=== PATIENT | female | born 1935 | race Caucasian/White ===

== ENCOUNTER → 2016-05-25 | Outpatient (REF) | payer OTHER ==
[~2016-05-25] MED LIST: ASPI81CH GT; B-12100010 PO; CALCIUM PO; CARV6.25 PO; CLOP75TA2 PO; CO Q100C10 PO; ELEQUIS GT; ELIQ5TAB PO; FISH5CAP PO; HYDR25TAB PO; INSULADS SC; INVO300T PO; LASI40TA PO; METF500T PO; METO25TAB PO; PERC5TAB6 PO; PRAV40TA2 PO; TYLE325T5 GT; VITA500046 PO; VITAMIN B 12 PO; [UNRECOGNIZED DRUG - OTHER] PO
[2016-05-25 18:12] LABS: BASO % 0.5 % (0.0-1.0); EOS # 0.2 K/mm3 (0.0-0.50); EOS % 2.3 % (0.0-3.0); LARGE UNSTAINED CELL # 0.1 K/mm3 (0.0-0.4); LARGE UNSTAINED CELL % 1.4 % (0.0-4.0); LYMPH # 2.3 K/mm3 (1.5-4.5); MEAN CORPUSCULAR HEMOGLOBIN 27.4 pg (27.0-33.0); MEAN CORPUSCULAR HGB CONC 32.1 g/dl (32.0-36.5); MEAN CORPUSCULAR VOLUME 85.1 fl (80.0-96.0); MONO # 0.4 K/mm3 (0.0-0.8); MONO % 5.3 % (0.0-5.0); NEUTROPHILS # 5.4 K/mm3 (1.8-7.7); NEUTROPHILS % 64.6 % (36.0-66.0); PLATELET COUNT, AUTOMATED 197 k/mm3 (150-450); WHITE BLOOD COUNT 8.3 K/mm3 (4.0-10.0)
[2016-05-25 19:28] LABS: ERYTHROCYTE SEDIMENTATION RATE 28 mm/hr (0-30)
== END ==
LOC: M SFHCPLAZ 15:55
PROVIDERS: ATTEND Physician Assistant Medical
DX: M54.5 Low back pain (principal)
CPT/HCPCS: 36415; 85025; 85652; 86140; G0463

== ENCOUNTER → 2016-07-14 | Outpatient (REF) | payer OTHER ==
[2016-07-14 12:15] LABS: ALBUMIN 3.9 GM/DL (3.2-5.2); ALBUMIN/GLOBULIN RATIO 1.39 (1.00-1.93); ALKALINE PHOSPHATASE 71 U/L (45-117); ALT/SGPT 13 U/L (12-78); ANION GAP 6 MEQ/L (8-16); AST/SGOT 10 U/L (15-37); BILIRUBIN,TOTAL 1.1 MG/DL (0.2-1.0); BLOOD UREA NITROGEN 26 MG/DL (7-18); CALCIUM LEVEL 9.3 MG/DL (8.8-10.2); CARBON DIOXIDE LEVEL 32 MEQ/L (21-32); CHLORIDE LEVEL 102 MEQ/L (98-107); CHOLESTEROL LEVEL 140 MG/DL (<200); CREATININE FOR GFR 1.34 MG/DL (0.55-1.02); GLOMERULAR FILTRATION RATE 40.6 (>39); GLUCOSE, FASTING 147 MG/DL (83-110); POTASSIUM SERUM 4.3 MEQ/L (3.5-5.1); SODIUM LEVEL 140 MEQ/L (136-145); TOTAL PROTEIN 6.7 GM/DL (6.4-8.2); TRIGLYCERIDES LEVEL 76 MG/DL (<150)
== END ==
LOC: M SFHCPLAZ 07:48
PROVIDERS: ATTEND Family Medicine
DX: E78.2 Mixed hyperlipidemia (principal); Z79.899 Other long term (current) drug therapy

== ENCOUNTER → 2016-11-19 | Outpatient (REF) | payer OTHER ==
[~2016-11-19] MED LIST changes: -METF500T PO; +METF500T13 PO; +PERC5TAB12 PO; -PERC5TAB6 PO
[2016-11-19 12:10] LABS: CALCIUM OXALATE CRYSTALS SMALL
[2016-11-19 12:14] LABS: BASO % 0.6 % (0.0-1.0); EOS # 0.2 K/mm3 (0.0-0.50); EOS % 2.7 % (0.0-3.0); LARGE UNSTAINED CELL # 0.1 K/mm3 (0.0-0.4); LARGE UNSTAINED CELL % 1.1 % (0.0-4.0); LYMPH # 1.9 K/mm3 (1.5-4.5); LYMPH % 24.6 % (24.0-44.0); MEAN CORPUSCULAR HEMOGLOBIN 27.5 pg (27.0-33.0); MEAN CORPUSCULAR HGB CONC 32.3 g/dl (32.0-36.5); MEAN CORPUSCULAR VOLUME 85.3 fl (80.0-96.0); MONO # 0.3 K/mm3 (0.0-0.8); MONO % 4.5 % (0.0-5.0); NEUTROPHILS % 66.6 % (36.0-66.0); PLATELET COUNT, AUTOMATED 201 k/mm3 (150-450); RED CELL DISTRIBUTION WIDTH 14.3 % (11.5-14.5); WHITE BLOOD COUNT 7.6 K/mm3 (4.0-10.0)
[2016-11-19 12:47] LABS: ALBUMIN 3.8 GM/DL (3.2-5.2); ALBUMIN/GLOBULIN RATIO 1.27 (1.00-1.93); BILIRUBIN,TOTAL 1.2 MG/DL (0.2-1.0); CALCIUM LEVEL 9.7 MG/DL (8.8-10.2); CREATININE FOR GFR 1.33 MG/DL (0.55-1.02); GLOMERULAR FILTRATION RATE 40.9 (>32); PERCENT SATURATION 18.9 % (13.2-45.0); POTASSIUM SERUM 4.1 MEQ/L (3.5-5.1); TOTAL PROTEIN 6.8 GM/DL (6.4-8.2)
== END ==
LOC: M SFHCPLAZ 08:28
PROVIDERS: ATTEND Family Medicine
DX: I10 Essential (primary) hypertension (principal); D51.9 Vitamin B12 deficiency anemia, unspecified; E11.9 Type 2 diabetes mellitus without complications

== ENCOUNTER → 2016-12-08 | Outpatient (CLI) | payer OTHER ==
--- NOTE | 2016-12-08 13:09 | REP ---
Clinical: Follow up multinodular goiter. Technique: Real time hameed scale and color evaluation using curved array and linear high frequency transducers. Findings: The thyroid gland is diffusely heterogeneous and moderately enlarged including scattered noncalcified and calcified nodules. In direct comparison with prior examination dated 12/10/2015, examination is essentially stable when allowing for normal variations in technique. The right thyroid lobe measures approximately 4.5 x 2.0 x 2.5 cm (previously measured 5.7 x 2.5 x 3.1 cm) and appears diffusely heterogeneous with a central, midpole calcified nodule currently measuring approximately 7 x 5 x 5 mm. A noncalcified right upper pole nodule currently measures approximately 10 x 10 x 10 mm (previously measured at 9 x 9 x 12 mm). The isthmus measures 6.7 mm in width. The left lobe measures 6.8 x 1.9 x 2.4 cm (previously measured 5.4 x 2.0 x 2.8 cm) and appears diffusely heterogeneous with a large lower pole calcified nodule currently measuring approximately 23 x 16 x 16 mm (previously measuring at 13 x 9 x 20 mm). Noncalcified solid nodule in the upper pole measures 9 x 8 x 7 mm (previously measuring 11 x 8 x 14 mm). A calcified mid pole nodule measures 9 x 10 x 7 mm (previously measuring 12 x 10 x 13 mm). Impression: Heterogeneous multinodular goiter with multiple ossified and noncalcified nodules which, when allowing for variations in technique appear overall relatively similar to prior examination. Signed by Carlos Argueta MD 12/08/2016 01:00 P
== END ==
LOC: M RAD 11:51
PROVIDERS: ATTEND Family Medicine
DX: E04.2 Nontoxic multinodular goiter (principal)

== ENCOUNTER → 2017-03-16 | Outpatient (CLI) | payer OTHER ==
--- NOTE | 2017-03-16 09:53 | REPMRS ---
Patient History The patient states she has not had a clinical breast exam in over a year. Patient is postmenopausal. Family history of breast cancer in sister at age 36. Digital Woman Screen Mammo: March 16, 2017 - Exam #: [id number] Bilateral CC and MLO view(s) were taken. Technologist: Sri Billy Technologist Prior study comparison: January 29, 2016, digital woman screen mammo performed at [facility] to [facility]. November 18, 2014, digital woman screen mammo performed at [facility] to [facility]. FINDINGS: There are scattered fibroglandular densities. There has been no change in the appearance of the mammogram from the prior studies. There is a mild amount of residual fibroglandular tissue which is fairly symmetric. There is no interval development of dominant mass, architectural distortion, or clustered microcalcification suggestive of malignancy. ASSESSMENT: BI-RADS/ACR category 1 mammogram. Negative. Recommendation Routine screening mammogram in 1 year (for women over age 40). This mammogram was interpreted with the aid of an FDA-approved computer-aided dectection system. Electronically Signed By: Skyler White MD 03/16/17 0953
== END ==
LOC: M WHC 07:54
PROVIDERS: ATTEND Family Medicine
DX: Z12.31 Encounter for screening mammogram for malignant neoplasm of breast (principal); Z78.0 Asymptomatic menopausal state

== ENCOUNTER → 2017-03-25 | Outpatient (REF) | payer OTHER ==
[2017-03-25 11:56] LABS: ALBUMIN 3.5 GM/DL (3.2-5.2); ALBUMIN/GLOBULIN RATIO 1.13 (1.00-1.93); ALKALINE PHOSPHATASE 67 U/L (45-117); ALT/SGPT 11 U/L (12-78); ANION GAP 7 MEQ/L (8-16); AST/SGOT 12 U/L (7-37); BILIRUBIN,TOTAL 0.9 MG/DL (0.2-1.0); BLOOD UREA NITROGEN 29 MG/DL (7-18); CALCIUM LEVEL 9.1 MG/DL (8.8-10.2); CARBON DIOXIDE LEVEL 32 MEQ/L (21-32); CHLORIDE LEVEL 106 MEQ/L (98-107); CHOLESTEROL LEVEL 122 MG/DL (<200); CREATININE FOR GFR 1.21 MG/DL (0.55-1.02); FREE T4 1.11 NG/DL (0.76-1.46); GLOMERULAR FILTRATION RATE 45.6 (>32); GLUCOSE, FASTING 128 MG/DL (83-110); POTASSIUM SERUM 4.3 MEQ/L (3.5-5.1); SODIUM LEVEL 145 MEQ/L (136-145); TOTAL PROTEIN 6.6 GM/DL (6.4-8.2); TRIGLYCERIDES LEVEL 61 MG/DL (<150)
[2017-03-25 12:04] LABS: ESTIMATED AVERAGE GLUCOSE 171 MG/DL (60-110)
== END ==
LOC: M SFHCPLAZ 08:06
DX: E11.9 Type 2 diabetes mellitus without complications (principal); E04.2 Nontoxic multinodular goiter
CPT/HCPCS: 83735

== ENCOUNTER → 2017-08-16 | Outpatient (REF) | payer OTHER ==
[2017-08-16 11:56] LABS: BASO # 0.1 10^3/uL (0.0-0.2); BASO % 0.8 % (0.0-1.0); EOS # 0.2 10^3/uL (0.0-0.50); EOS % 2.3 % (0.0-3.0); HEMATOCRIT 38.6 % (36.0-47.0); HEMOGLOBIN 12.1 g/dl (12.0-15.5); IMMATURE GRANULOCYTE % 0.5 % (0-3.0); LYMPH # 1.9 10^3/uL (1.5-4.5); LYMPH % 25.7 % (24.0-44.0); MEAN CORPUSCULAR HEMOGLOBIN 26.9 pg (27.0-33.0); MEAN CORPUSCULAR HGB CONC 31.3 g/dl (32.0-36.5); MEAN CORPUSCULAR VOLUME 85.8 fl (80.0-96.0); MONO # 0.5 10^3/uL (0.0-0.8); MONO % 6.1 % (0.0-5.0); NEUTROPHILS # 4.9 10^3/uL (1.8-7.7); NEUTROPHILS % 64.6 % (36.0-66.0); PLATELET COUNT, AUTOMATED 206 10^3/uL (150-450); RED CELL DISTRIBUTION WIDTH 14.7 % (11.5-14.5); WHITE BLOOD COUNT 7.5 10^3/uL (4.0-10.0)
[2017-08-16 12:19] LABS: ESTIMATED AVERAGE GLUCOSE 203 MG/DL (60-110); HEMOGLOBIN A1c 8.7 %
[2017-08-16 12:22] LABS: ALBUMIN 3.7 GM/DL (3.2-5.2); ALBUMIN/GLOBULIN RATIO 1.23 (1.00-1.93); ALKALINE PHOSPHATASE 62 U/L (45-117); ALT/SGPT 11 U/L (12-78); ANION GAP 5 MEQ/L (8-16); AST/SGOT 13 U/L (7-37); BILIRUBIN,TOTAL 1.2 MG/DL (0.2-1.0); BLOOD UREA NITROGEN 25 MG/DL (7-18); CALCIUM LEVEL 9.4 MG/DL (8.8-10.2); CARBON DIOXIDE LEVEL 33 MEQ/L (21-32); CHLORIDE LEVEL 105 MEQ/L (98-107); CREATININE FOR GFR 1.36 MG/DL (0.55-1.30); GLOMERULAR FILTRATION RATE 39.8 (>32); GLUCOSE, FASTING 183 MG/DL (70-100); POTASSIUM SERUM 4.5 MEQ/L (3.5-5.1); SODIUM LEVEL 143 MEQ/L (136-145); TOTAL PROTEIN 6.7 GM/DL (6.4-8.2)
[2017-08-16 13:14] LABS: PTH INTACT 33.2 PG/ML (18.5-88.0); TOTAL 25(OH) VITAMIN D 72.5 NG/ML (30.0-100.0); VITAMIN B12 LEVEL 521 PG/ML (247-911)
== END ==
LOC: M SFHCPLAZ 08:14
DX: N18.3 Chronic kidney disease, stage 3 (moderate) (principal); I12.9 Hypertensive chronic kidney disease with stage 1 through stage 4 chronic kidney disease, or unspecified chronic kidney disease
CPT/HCPCS: 82607

== ENCOUNTER → 2017-12-19 | Outpatient (REF) | payer OTHER ==
[2017-12-19 12:41] LABS: BASO % 0.5 % (0.0-1.0); EOS # 0.2 10^3/uL (0.0-0.50); HEMOGLOBIN 11.6 g/dl (12.0-15.5); IMMATURE GRANULOCYTE % 0.3 % (0-3.0); LYMPH # 1.9 10^3/uL (1.5-4.5); LYMPH % 25.5 % (24.0-44.0); MEAN CORPUSCULAR HEMOGLOBIN 26.8 pg (27.0-33.0); MEAN CORPUSCULAR HGB CONC 30.5 g/dl (32.0-36.5); MEAN CORPUSCULAR VOLUME 87.8 fl (80.0-96.0); MONO # 0.4 10^3/uL (0.0-0.8); MONO % 5.8 % (0.0-5.0); NEUTROPHILS # 4.8 10^3/uL (1.8-7.7); NEUTROPHILS % 64.9 % (36.0-66.0); PLATELET COUNT, AUTOMATED 207 10^3/uL (150-450); RED BLOOD COUNT 4.33 10^6/uL (4.00-5.40); RED CELL DISTRIBUTION WIDTH 14.9 % (11.5-14.5); RETICULOCYTE # 47.6 10^9/L (17-77); RETICULOCYTE % 1.1 % (0.5-1.5); WHITE BLOOD COUNT 7.4 10^3/uL (4.0-10.0)
[2017-12-19 13:12] LABS: ALBUMIN 3.5 GM/DL (3.2-5.2); ALBUMIN/GLOBULIN RATIO 1.17 (1.00-1.93); ALKALINE PHOSPHATASE 62 U/L (45-117); ALT/SGPT 10 U/L (12-78); ANION GAP 5 MEQ/L (8-16); AST/SGOT 13 U/L (7-37); BILIRUBIN,TOTAL 1.2 MG/DL (0.2-1.0); BLOOD UREA NITROGEN 24 MG/DL (7-18); CALCIUM LEVEL 8.9 MG/DL (8.8-10.2); CARBON DIOXIDE LEVEL 32 MEQ/L (21-32); CHLORIDE LEVEL 105 MEQ/L (98-107); CREATININE FOR GFR 1.25 MG/DL (0.55-1.30); FREE T4 1.17 NG/DL (0.76-1.46); GLOMERULAR FILTRATION RATE 43.8 (>32); GLUCOSE, FASTING 119 MG/DL (70-100); POTASSIUM SERUM 4.4 MEQ/L (3.5-5.1); SODIUM LEVEL 142 MEQ/L (136-145); TOTAL 25(OH) VITAMIN D 65.8 NG/ML (30.0-100.0); TOTAL PROTEIN 6.5 GM/DL (6.4-8.2)
[2017-12-19 13:13] LABS: PTH INTACT 31.7 PG/ML (18.5-88.0)
[2017-12-19 14:43] LABS: ESTIMATED AVERAGE GLUCOSE 180 MG/DL (60-110); HEMOGLOBIN A1c 7.9 %
== END ==
LOC: M SFHCPLAZ 08:11
DX: D50.9 Iron deficiency anemia, unspecified (principal); N18.3 Chronic kidney disease, stage 3 (moderate); E04.2 Nontoxic multinodular goiter; E11.9 Type 2 diabetes mellitus without complications
CPT/HCPCS: 83735

== ENCOUNTER → 2018-01-16 | Outpatient (CLI) | payer OTHER | LOC: M RAD 09:44 | DX: E04.2 Nontoxic multinodular goiter (principal) | CPT/HCPCS: 76536 ==

== ENCOUNTER → 2018-04-25 | Outpatient (REF) | payer MEDICARE ==
[~2018-04-25] MED LIST changes: -LASI40TA PO; +LASI40TA9 PO
[2018-04-25 09:37] LABS: CHOLESTEROL RISK RATIO 2.533 (<5)
== END ==
LOC: M SFHCPLAZ 08:11
PROVIDERS: ATTEND Physician Assistant Medical
DX: E78.2 Mixed hyperlipidemia (principal)

== ENCOUNTER → 2018-09-19 | Outpatient (CLI) | payer MEDICARE ==
[~2018-09-19] MED LIST changes: -ASPI81CH GT; +ASPI81CH49 GT; +HYDR-2541 PO; -HYDR25TAB PO; +METO-346 PO; +METO1TAB63 PO; -METO25TAB PO
--- NOTE | 2018-09-19 08:51 | REPMRS ---
Patient History The patient states she has not had a clinical breast exam in over a year. Patient is postmenopausal. Family history of breast cancer at age 36 in sister. Digital Woman Screen Mammo: September 19, 2018 - Exam #: [id number] Bilateral CC and MLO view(s) were taken. Technologist: Jennifer Pualson, Technologist Prior study comparison: March 16, 2017, digital woman screen mammo performed at [facility]. January 29, 2016, digital woman screen mammo performed at [facility]. FINDINGS: There are scattered fibroglandular densities. Bilateral screening digital mammogram with tomosynthesis: The patient states that there are no palpable abnormalities or other breast complaints. The patient's Tyrer-Cuzieck Lifetime Breast Carcinoma Risk is: 2.4% There is a new 8 mm nodule with indistinct margins centrally in the left breast as a change from the comparison studies. There are no other changes in the left breast. In the right breast there is a 2 mm benign calcification with a central lucency anteriorly. There are no focal suspicious findings in the right breast. There are no additional findings on tomosynthesis. This mammogram is interpreted with the aid of an FDA approved computer-aided detection system. Not all cancers are identified by mammography. Negative mammogram reports should not delay biopsy if a dominant or clinically suspicious mass is present. Adenosis and dense breasts may obscure an underlying neoplasm. Assessment: BI-RADS/ACR category 0 mammogram, Incomplete: Need additional imaging evaluation and/or prior mammograms for comparison. Recommendation Ultrasound and follow-up diagnostic mammogram of the left breast. This mammogram was interpreted with the aid of an FDA-approved computer-aided dectection system. A. Negative x-ray reports should not delay biopsy if a dominant or clinically suspicious mass is present. B. Not all cancers are identified by mammography. C. Adenosis and dense breast may obscure an underlying neoplasm. Electronically Signed By: Skyler Gonsalez M.D. 09/19/18 0815
== END ==
LOC: M WHC 06:35
PROVIDERS: ATTEND Family Medicine
DX: Z12.31 Encounter for screening mammogram for malignant neoplasm of breast (principal); N63.10 Unspecified lump in the right breast, unspecified quadrant; N63.20 Unspecified lump in the left breast, unspecified quadrant; Z78.0 Asymptomatic menopausal state; Z80.3 Family history of malignant neoplasm of breast

== ENCOUNTER → 2018-09-25 | Outpatient (REF) | payer MEDICARE ==
[2018-09-25 09:55] LABS: BASO # 0.1 10^3/uL (0.0-0.2); BASO % 0.8 % (0.0-1.0); EOS # 0.1 10^3/uL (0.0-0.50); EOS % 1.8 % (0.0-3.0); HEMATOCRIT 40.6 % (36.0-47.0); HEMOGLOBIN 12.7 g/dl (12.0-15.5); LYMPH # 1.9 10^3/uL (1.5-4.5); LYMPH % 24.7 % (24.0-44.0); MEAN CORPUSCULAR HEMOGLOBIN 26.3 pg (27.0-33.0); MEAN CORPUSCULAR HGB CONC 31.3 g/dl (32.0-36.5); MEAN CORPUSCULAR VOLUME 84.1 fl (80.0-96.0); MONO # 0.5 10^3/uL (0.0-0.8); MONO % 6.2 % (0.0-5.0); NEUTROPHILS % 66.1 % (36.0-66.0); PLATELET COUNT, AUTOMATED 228 10^3/uL (150-450); RED BLOOD COUNT 4.83 10^6/uL (4.00-5.40); WHITE BLOOD COUNT 7.6 10^3/uL (4.0-10.0)
[2018-09-25 10:04] LABS: ALBUMIN 3.9 GM/DL (3.2-5.2); ALT/SGPT 13 U/L (12-78); BILIRUBIN,TOTAL 1.2 MG/DL (0.2-1.0); BLOOD UREA NITROGEN 23 MG/DL (7-18); CALCIUM LEVEL 9.7 MG/DL (8.8-10.2); CARBON DIOXIDE LEVEL 32 MEQ/L (21-32); CHLORIDE LEVEL 103 MEQ/L (98-107); CREATININE FOR GFR 1.33 MG/DL (0.55-1.30); GLOMERULAR FILTRATION RATE 40.8 (>32); GLUCOSE, FASTING 90 MG/DL (70-100); MAGNESIUM LEVEL 1.9 MG/DL (1.8-2.4); POTASSIUM SERUM 3.9 MEQ/L (3.5-5.1); SODIUM LEVEL 141 MEQ/L (136-145); TOTAL PROTEIN 7.2 GM/DL (6.4-8.2)
[2018-09-25 10:26] LABS: VITAMIN B12 LEVEL > 2000 PG/ML (247-911)
[2018-09-25 11:22] LABS: HEMOGLOBIN A1c 8.2 %
== END ==
LOC: M SFHCPLAZ 07:53
PROVIDERS: ATTEND Family Medicine
DX: N18.3 Chronic kidney disease, stage 3 (moderate) (principal)

== ENCOUNTER → 2019-03-22 | Outpatient (CLI) | payer MEDICARE ==
[~2019-03-22] MED LIST changes: +AMLO2.5T3 PO; +ASPI81TA85 PO; +ATOR40TA75 PO; +B-122500 PO; +D 202000 PO; +LETR2.5T2 PO; +TRES1INJ INJ
[2019-03-22 10:15] LABS: BASO % 0.5 % (0.0-1.0); EOS # 0.3 10^3/uL (0.0-0.5); EOS % 4.1 % (0.0-3.0); HEMOGLOBIN 11.5 g/dl (12.0-15.5); LYMPH # 1.6 10^3/uL (1.5-5.0); LYMPH % 25.5 % (24.0-44.0); MEAN CORPUSCULAR HEMOGLOBIN 26.1 pg (27.0-33.0); MEAN CORPUSCULAR HGB CONC 30.3 g/dl (32.0-36.5); MEAN CORPUSCULAR VOLUME 86.4 fl (80.0-96.0); MONO # 0.3 10^3/uL (0.0-0.8); MONO % 5.3 % (0.0-5.0); NEUTROPHILS # 4.1 10^3/uL (1.5-8.5); NEUTROPHILS % 64.1 % (36.0-66.0); PLATELET COUNT, AUTOMATED 190 10^3/uL (150-450); WHITE BLOOD COUNT 6.4 10^3/uL (4.0-10.0)
[2019-03-22 10:47] LABS: HEMOGLOBIN A1c 8.2 %
[2019-03-22 10:52] LABS: ALBUMIN 3.4 GM/DL (3.2-5.2); BILIRUBIN,TOTAL 0.9 MG/DL (0.2-1.0); CALCIUM LEVEL 8.9 MG/DL (8.8-10.2); CHOLESTEROL RISK RATIO 2.416 (<5); CREATININE FOR GFR 1.17 MG/DL (0.55-1.30); FREE T4 1.09 NG/DL (0.76-1.46); GLOMERULAR FILTRATION RATE 47.1 (>32); POTASSIUM SERUM 4.3 MEQ/L (3.5-5.1); THYROID STIMULATING HORMONE 4.06 uIU/ML (0.358-3.740); TOTAL PROTEIN 6.5 GM/DL (6.4-8.2)
[2019-03-22 10:54] LABS: TOTAL 25(OH) VITAMIN D 62.1 NG/ML (30.0-100.0)
[2019-03-22 10:55] LABS: PTH INTACT 36.9 PG/ML (18.5-88.0)
== END ==
LOC: M PLALAB 08:07
PROVIDERS: ATTEND Family Medicine
DX: D50.9 Iron deficiency anemia, unspecified (principal); E55.9 Vitamin D deficiency, unspecified; E11.9 Type 2 diabetes mellitus without complications

== ENCOUNTER → 2019-08-10 | Outpatient (REF) | payer MEDICARE ==
[2019-08-10 10:41] LABS: APPEARANCE, URINE MANUAL HAZY (CLEAR); COLOR, URINE MANUAL YELLOW (YELLOW); PH,URINE MAN 5.5 UNITS (5.0 - 7.0)
[2019-08-10 10:42] LABS: BILIRUBIN, URINE MANUAL NEGATIVE (NEGATIVE); BLOOD URINE MANUAL TRACE (NEGATIVE); GLUCOSE, URINE (UA) MANUAL NEGATIVE (NEGATIVE); KETONE, URINE MANUAL NEGATIVE (NEGATIVE); LEUKOCYTE ESTERASE, URINE MAN POSITIVE (NEGATIVE); NITRITE, URINE MANUAL NEGATIVE (NEGATIVE); UROBILINOGEN, URINE MANUAL NORMAL (NORMAL)
[2019-08-10 10:43] LABS: PROTEIN, URINE MANUAL NEGATIVE (NEGATIVE)
[2019-08-10 10:48] LABS: BASO % 0.4 % (0.0-1.0); EOS # 0.2 10^3/uL (0.0-0.5); EOS % 2.1 % (0.0-3.0); HEMATOCRIT 43.2 % (36.0-47.0); HEMOGLOBIN 13.1 g/dl (12.0-15.5); LYMPH # 2.4 10^3/uL (1.5-5.0); LYMPH % 30.1 % (24.0-44.0); MEAN CORPUSCULAR HEMOGLOBIN 25.7 pg (27.0-33.0); MEAN CORPUSCULAR HGB CONC 30.3 g/dl (32.0-36.5); MEAN CORPUSCULAR VOLUME 84.9 fl (80.0-96.0); MONO # 0.5 10^3/uL (0.0-0.8); MONO % 5.7 % (0.0-5.0); NEUTROPHILS # 4.9 10^3/uL (1.5-8.5); NEUTROPHILS % 61.6 % (36.0-66.0); PLATELET COUNT, AUTOMATED 218 10^3/uL (150-450); RED BLOOD COUNT 5.09 10^6/uL (4.00-5.40); WHITE BLOOD COUNT 7.9 10^3/uL (4.0-10.0)
[2019-08-10 10:49] LABS: BACTERIA, URINE SMALL AMOUNT; HYALINE CAST, URINE NONE SEEN /lpf (0-1); RBC, URINE 0-1 /hpf (0-3); SQUAMOUS EPITHELIAL CELL URINE SMALL AMOUNT /hpf (SMALL AMT); TRIPLE PHOSPHATE CRYSTAL,URINE SMALL AMOUNT /hpf
[2019-08-10 10:51] LABS: AMORPHOUS SEDIMENT, URINE SMALL AMOUNT (NEGATIVE)
[2019-08-10 11:00] LABS: ALBUMIN 3.8 GM/DL (3.2-5.2); BILIRUBIN,TOTAL 0.9 MG/DL (0.2-1.0); CALCIUM LEVEL 9.6 MG/DL (8.8-10.2); CREATININE FOR GFR 1.24 MG/DL (0.55-1.30); FREE T4 1.11 NG/DL (0.76-1.46); GLOMERULAR FILTRATION RATE 44.1 (>32); MAGNESIUM LEVEL 1.9 MG/DL (1.8-2.4); POTASSIUM SERUM 4.4 MEQ/L (3.5-5.1); THYROID STIMULATING HORMONE 2.89 uIU/ML (0.358-3.740); TOTAL PROTEIN 7.1 GM/DL (6.4-8.2)
[2019-08-10 11:11] LABS: HEMOGLOBIN A1c 7.4 %
[2019-08-10 11:22] LABS: MAU/CREAT RATIO 28.1 MCG/MG (0.0-30.0)
== END ==
LOC: M SFHCPLAZ 08:04
PROVIDERS: ATTEND Family Medicine
DX: I48.0 Paroxysmal atrial fibrillation (principal); D50.9 Iron deficiency anemia, unspecified; E11.9 Type 2 diabetes mellitus without complications

== ENCOUNTER → 2020-01-09 | Outpatient (REF) | payer MEDICARE ==
[~2020-01-09] MED LIST changes: -ASPI81TA85 PO; +ASPI81TA86 PO
[2020-01-09 10:58] LABS: HEMOGLOBIN A1c 6.9 %
[2020-01-09 11:03] LABS: ALBUMIN 3.7 GM/DL (3.2-5.2); CALCIUM LEVEL 9.3 MG/DL (8.8-10.2); CHOLESTEROL RISK RATIO 2.418 (<5); CREATININE FOR GFR 1.23 MG/DL (0.55-1.30); GLOMERULAR FILTRATION RATE 44.4 (>32); POTASSIUM SERUM 4.5 MEQ/L (3.5-5.1); TOTAL PROTEIN 6.7 GM/DL (6.4-8.2)
== END ==
LOC: M PLALAB 08:06
PROVIDERS: ATTEND Family Medicine
DX: I50.30 Unspecified diastolic (congestive) heart failure (principal); E11.9 Type 2 diabetes mellitus without complications

== ENCOUNTER → 2020-01-21 | Outpatient (CLI) | payer MEDICARE ==
--- NOTE | 2020-01-23 07:01 | REP ---
INDICATION: GOITER COMPARISON: 01/16/2018 TECHNIQUE: White scale and color evaluation of the thyroid gland using the linear high frequency transducer. FINDINGS: Examination was limited due to technical factors. The thyroid gland is diffusely heterogeneous. Isthmus measures 5.7 mm in width. Right lobe measures 5.2 x 1.9 x 2.1 cm and includes solid upper pole nodule measuring 11 x 10 x 9 mm as well as partially stable calcified midpole nodule measuring 5 x 7 x 6 mm. Left lobe measures 4.7 x 2.2 x 2.3 cm and includes solid upper pole nodule measuring 9 x 7 x 5 mm similar to prior examination as well as partially calcified stable midpole nodule measuring 18 x 14 x 18 mm, and partially calcified lower pole nodule measuring 8 x 9 x 7 mm. IMPRESSION: Heterogeneous multinodular thyroid gland with multiple nodules. There is some stability as well as some variation to the nodules as compared to prior examination but this may in part be related to heterogeneity and variations in technique. <Electronically signed by Carlos Argueta > 01/23/20 0658
== END ==
LOC: M RAD 13:30
PROVIDERS: ATTEND Family Medicine
DX: E04.2 Nontoxic multinodular goiter (principal)

== ENCOUNTER → 2020-05-21 | Outpatient (REF) | payer MEDICARE ==
[2020-05-21 10:53] LABS: BASO # 0.1 10^3/uL (0.0-0.2); BASO % 0.7 % (0.0-1.0); EOS # 0.1 10^3/uL (0.0-0.5); EOS % 1.8 % (0.0-3.0); HEMATOCRIT 43.4 % (36.0-47.0); HEMOGLOBIN 13.6 g/dl (12.0-15.5); LYMPH % 27.8 % (24.0-44.0); MEAN CORPUSCULAR HEMOGLOBIN 26.7 pg (27.0-33.0); MEAN CORPUSCULAR HGB CONC 31.3 g/dl (32.0-36.5); MEAN CORPUSCULAR VOLUME 85.3 fl (80.0-96.0); MONO # 0.4 10^3/uL (0.0-0.8); MONO % 6.1 % (2.0-8.0); NEUTROPHILS # 4.6 10^3/uL (1.5-8.5); NEUTROPHILS % 63.3 % (36.0-66.0); PLATELET COUNT, AUTOMATED 219 10^3/uL (150-450); RED BLOOD COUNT 5.09 10^6/uL (4.00-5.40); WHITE BLOOD COUNT 7.2 10^3/uL (4.0-10.0)
[2020-05-21 11:32] LABS: BILIRUBIN,TOTAL 1.2 MG/DL (0.2-1.0); CALCIUM LEVEL 9.7 MG/DL (8.8-10.2); CREATININE FOR GFR 1.48 MG/DL (0.55-1.30); FREE T4 1.31 NG/DL (0.76-1.46); GLOMERULAR FILTRATION RATE 35.9 (>32); POTASSIUM SERUM 4.6 MEQ/L (3.5-5.1); PTH INTACT 59.5 PG/ML (18.5-88.0); THYROID STIMULATING HORMONE 3.12 uIU/ML (0.358-3.740); TOTAL 25(OH) VITAMIN D 86.6 NG/ML (30.0-100.0); TOTAL PROTEIN 6.8 GM/DL (6.4-8.2)
[2020-05-21 11:39] LABS: HEMOGLOBIN A1c 8.3 %
== END ==
LOC: M PLALAB 08:04
PROVIDERS: ATTEND Family Medicine
DX: I50.30 Unspecified diastolic (congestive) heart failure (principal); N18.30 Chronic kidney disease, stage 3 unspecified; E78.2 Mixed hyperlipidemia; E11.9 Type 2 diabetes mellitus without complications

== ENCOUNTER → 2020-06-06 | Outpatient (CLI) | payer MEDICARE ==
--- NOTE | 2020-06-06 09:01 | REP ---
INDICATION: CKD STAGE 3 COMPARISON: 12/07/2007 TECHNIQUE: Real time hameed scale ultrasound examination using curved array transducer followed by color Doppler evaluation of the renal vasculature. FINDINGS: Kidneys are relatively normal in reniform shape and symmetric in size with increased central sinus fat consistent with chronic renal disease. No hydronephrosis, nephrolithiasis, or renal mass lesion. Right kidney measures 9.0 x 4.3 x 3.4 cm and includes 8 mm lower pole cortical cyst. Left kidney measures 8.6 x 4.1 x 5.0 cm and includes 8 mm lower pole cortical cyst. Color Doppler evaluation . Peak aortic velocity: 84 centimeters/second RIGHT KIDNEY Renal arterial velocity: 95 centimeters/second Renal-aortic ratio: 1.13 Intrarenal resistive indices: 0.73-0.86 Intrarenal acceleration times: 0.036-0.042 LEFT KIDNEY Renal arterial velocity: 86 centimeters/second Renal-aortic ratio: 1.02 Intrarenal resistive indices: 0.75-0.78 Intrarenal acceleration times: 0.036-0.042 IMPRESSION: 1. Kidneys demonstrate chronic renal disease. No hydronephrosis. 2. Doppler interegation without sonographic evidence for renal arterial stenosis. <Electronically signed by Carlos Argueta > 06/06/20 0857
== END ==
LOC: M RAD 07:43
PROVIDERS: ATTEND Family Medicine
DX: N18.30 Chronic kidney disease, stage 3 unspecified (principal)

== ENCOUNTER → 2020-09-15 | Outpatient (REF) | payer MEDICARE ==
[2020-09-15 11:55] LABS: BASO # 0.1 10^3/uL (0.0-0.2); BASO % 0.7 % (0.0-1.0); EOS # 0.2 10^3/uL (0.0-0.5); EOS % 2.5 % (0.0-3.0); HEMATOCRIT 42.4 % (36.0-47.0); HEMOGLOBIN 12.9 g/dl (12.0-15.5); LYMPH # 2.3 10^3/uL (1.5-5.0); LYMPH % 30.4 % (24.0-44.0); MEAN CORPUSCULAR HEMOGLOBIN 26.1 pg (27.0-33.0); MEAN CORPUSCULAR HGB CONC 30.4 g/dl (32.0-36.5); MEAN CORPUSCULAR VOLUME 85.8 fl (80.0-96.0); MONO # 0.5 10^3/uL (0.0-0.8); MONO % 5.9 % (2.0-8.0); NEUTROPHILS # 4.6 10^3/uL (1.5-8.5); PLATELET COUNT, AUTOMATED 252 10^3/uL (150-450); RED BLOOD COUNT 4.94 10^6/uL (4.00-5.40); WHITE BLOOD COUNT 7.6 10^3/uL (4.0-10.0)
[2020-09-15 12:14] LABS: HEMOGLOBIN A1c 9.2 %
[2020-09-15 12:48] LABS: ALBUMIN 3.8 GM/DL (3.2-5.2); BILIRUBIN,TOTAL 1.2 MG/DL (0.2-1.0); CALCIUM LEVEL 9.8 MG/DL (8.8-10.2); CHOLESTEROL RISK RATIO 2.411 (<5); CREATININE FOR GFR 1.3 MG/DL (0.55-1.30); GLOMERULAR FILTRATION RATE 41.6 (>32); POTASSIUM SERUM 4.1 MEQ/L (3.5-5.1); TOTAL PROTEIN 6.9 GM/DL (6.4-8.2)
[2020-09-15 14:06] LABS: PTH INTACT 34.8 PG/ML (18.5-88.0)
== END ==
LOC: M PLALAB 07:59
PROVIDERS: ATTEND Family Medicine
DX: I50.30 Unspecified diastolic (congestive) heart failure (principal); E11.9 Type 2 diabetes mellitus without complications; N18.30 Chronic kidney disease, stage 3 unspecified

== ENCOUNTER 2021-03-26 11:53 | Inpatient (IN) | payer MEDICARE ==
[~2021-03-26] VITALS: Ht 165.1 cm; Wt 108.2 kg
[~2021-03-26 11:53] MED LIST changes: -ASPI81TA26 PO; -CEFD1CAP8 PO; -FURO20TA2 PO; -METF-838 PO; -VITA200012 PO
[2021-03-26] MEDS ORDERED: NS 1,000 ML IV ONE (12:15)
--- NOTE | 2021-03-26 12:37 | REP ---
INDICATION: DKA. COMPARISON: 05/10/2016 the latest prior TECHNIQUE: Portable FINDINGS: The technique utilized in obtaining the radiograph has magnified the cardiac silhouette and accentuated the interstitial markings. The superior mediastinal structures are midline. The cardiac silhouette is unremarkable in size, shape, and position. The diaphragmatic surfaces of the lungs are regular, and the costophrenic angles are clear. The pulmonary jeffries are clear. The imaged osseous structures are intact. IMPRESSION: There is no acute cardiopulmonary disease. <Electronically signed by Raheel Kelley > 03/26/21 0658
[2021-03-26 13:03] LABS: VENOUS BASE EXCESS -1.8 (-2.0-2.0); VENOUS HCO3 24.3 MEQ/L (23.0-27.0); VENOUS O2 SATURATION 87.7 % (60.0-80.0); VENOUS PARTIAL PRESSURE O2 55.7 mmHg (30.0-50.0); VENOUS STANDARD HCO3 22.8 MEQ/L; VENOUS TOTAL CO2 25.7 MEQ/L (24.0-28.0)
[2021-03-26 13:10] LABS: BASO % 0.5 % (0.0-1.0); EOS # 0.1 10^3/uL (0.0-0.5); EOS % 0.9 % (0.0-3.0); HEMATOCRIT 41.8 % (36.0-47.0); HEMOGLOBIN 13.3 g/dl (12.0-15.5); LYMPH # 1.3 10^3/uL (1.5-5.0); LYMPH % 14.3 % (24.0-44.0); MEAN CORPUSCULAR HEMOGLOBIN 26.5 pg (27.0-33.0); MEAN CORPUSCULAR HGB CONC 31.8 g/dl (32.0-36.5); MEAN CORPUSCULAR VOLUME 83.3 fl (80.0-96.0); MONO # 0.4 10^3/uL (0.0-0.8); MONO % 4.7 % (2.0-8.0); NEUTROPHILS % 79.3 % (36.0-66.0); PLATELET COUNT, AUTOMATED 193 10^3/uL (150-450); RED BLOOD COUNT 5.02 10^6/uL (4.00-5.40); WHITE BLOOD COUNT 8.8 10^3/uL (4.0-10.0)
[2021-03-26 13:30] LABS: ACETONE/KETONE 13.64 MG/DL (<2.81); ALBUMIN 3.5 GM/DL (3.2-5.2); BILIRUBIN,DIRECT 0.3 MG/DL (0.0-0.2); BILIRUBIN,TOTAL 1.2 MG/DL (0.2-1.0); TOTAL PROTEIN 6.6 GM/DL (6.4-8.2)
[2021-03-26] MEDS ORDERED: cefTRIAXone SOD 1 GM in D5W MINI-BAG PLUS 50 ML IV ONE (14:25)
[2021-03-26] MEDS ORDERED: INSULIN IV RATE CHANGE DOCUMENTATION ML/HR XX SCH (14:25)
[2021-03-26] MEDS ORDERED: INSULIN REGULAR IN 0.9 % NACL 100 UNIT in IV 1 EA IV SCH ×2 (14:25)
[2021-03-26] MEDS ORDERED: VITA200012 PO (14:47)
[2021-03-26] MEDS ORDERED: ASPI81TA26 PO (14:53)
[2021-03-26] MEDS ORDERED: FURO20TA2 PO (14:53)
[2021-03-26] MEDS ORDERED: METF-838 PO (14:53)
[2021-03-26] MEDS ORDERED: HOME MED LIST COMPLETE! XX SCH (14:55)
[2021-03-26] MEDS ORDERED: GLUCOSE 4GM CHEW TABLET PO PRN (15:30)
[2021-03-26] MEDS ORDERED: DEXTROSE 50% 50 ML SYRINGE IV PRN (15:30)
[2021-03-26] MEDS ORDERED: LEVEMIR (INSULIN DETEMIR) 1 UNITS/0.01ML SC ONE ×2 (15:30→15:45)
[2021-03-26] MEDS ORDERED: GLUCAGON INJ 1MG VIAL SC PRN (15:30)
[2021-03-26] MEDS ORDERED: HumaLOG INSULIN (NovoLOG) PER UNIT SC ONE (15:30)
--- NOTE | 2021-03-26 16:12 | HPEPDOC ---
General Date of Admission Mar 26, 2021 at 15:22 Date of Service: Mar 26, 2021 Chief Complaint The patient is a 85-year-old female admitted with a reason for visit of Hhs, Uti. History of Present Illness Mrs. Craig is an 85-year-old female with insulin-dependent type 2 diabetes mellitus who presents to the ED for increased lethargy and high blood sugar. Patient is a poor historian and son present provided most of the history. Patient has been managing her own medications, but patient may have not been compliant with her medications. About a week ago, the son had noticed that she started to act different. She is more lethargic, fatigued, and confused. He denies any recent sick contacts, hospitalizations, or antibiotics. Today he checked her blood sugar and it was over 600. He called the ambulance to bring patient to the hospital. When I spoke to the patient, she looked alert and is very pleasant. She tells me that she is very thirsty and she has been peeing a lot. She denies any fever, chest pain, dyspnea, abdominal pain, diarrhea, or dysuria. She tells me that she has an appetite and she is not nauseous. She wants to drink water, and she feels like she could eat. While in the ED, she is nonfebrile, nontachycardic, and doing well at room air. Blood pressure is ted vated. She has no leukocytosis. Her blood glucose is elevated, initially greater than 700. Last glucose check demonstrated glucose of 645. Bicarb is 27. VBG demonstrates a pH of 7.34 and PCO2 of 46. Beta hydroxybutyrate is elevated at 13.64. Patient is not acidotic and she does not have nausea, abdominal pain, or anorexia that comes with DKA. Patient does have HHS. Otherwise, UA demonstrates pyuria. Patient may have a UTI and was empirically started on ceftriaxone. Patient will be admitted for HHS and UTI. Home Medications Scheduled Apixaban (Eliquis) 5 Mg Tab, 5 MG PO BID, (Reported) Aspirin (Aspirin EC) 81 Mg Tablet.dr, 81 MG PO DAILY, (Reported) Atorvastatin Calcium (Atorvastatin Calcium) 40 Mg Tablet, 40 MG PO DAILY, (Reported) Carvedilol (Carvedilol) 6.25 Mg Tab, 6.25 MG PO BID, (Reported) Cholecalciferol (Vitamin D3) (D3-2000) 50 Mcg Capsule, 50 MCG PO DAILY, (Reported) Cyanocobalamin (Vitamin B-12) (Vitamin B12) 2,500 Mcg Tablet, 2.5 MG PO DAILY, (Reported) Furosemide (Furosemide) 20 Mg Tablet, 20 MG PO DAILY, (Reported) Insulin Degludec (Tresiba Flextouch U-200) 200 Unit/1 Ml Insuln.pen, 16 UNITS SC QHS, (Reported) Metformin HCl (Metformin HCl ER) 500 Mg Tab.er.24h, 500 MG PO BID, (Reported) Allergies Coded Allergies: No Known Allergies (Unverified , 03/06/19) Past Medical History Medical History 1. Insulin-dependent diabetes mellitus type 2 2. Morbid obesity 3. Hypertension 4. Vitamin B12 deficiency 5. Chronic kidney disease stage III 6. Family deficiency 7. Osteopenia 8. Left knee osteoarthritis 9. 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 Persistent atrial fibrillation 11. CAD status post stent 12. Multinodular goiter 13. Lumbar DJD 14. 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 Colonoscopy in 1999 2. Heart cath on 09/02/2015 3. Left TKR 2015 4. Lumpectomy 2019 Family History Father: Patient does not know any medical history in father Mother: Patient does not mother had heart disease Social History * Smoker: non-smoker Alcohol: rarely Drugs: denies A-FIB/CHADSVASC A-FIB History Current/History of A-Fib/PAF?: Yes Current PO Anticoag Therapy: Yes Review of Systems Constitutional: Reports: Fatigue, Lethargy; Denies: Chills, Fever Eyes: Denies: Vision change ENT: Denies: Sore Throat Skin: Denies: Rash Pulmonary: Denies: Dyspnea, Cough Cardiovascular: Denies: Chest Pain Gastrointestinal: Denies: Nausea, Abdominal Pain, Diarrhea Genitourinary: Denies: Dysuria Endocrine: Reports: Polydipsia (Very thirsty), Polyuria Neurological: Denies: Numbness Psych: Denies: Anxiety, Depression Physical Examination General Exam: Positive: Alert, Cooperative Eye Exam: Positive: EOMI; Negative: Sclera icteric ENT Exam: Negative: Atraumatic Neck Exam: Positive: Supple Chest Exam: Positive: Clear to auscultation Heart Exam: Positive: Rate Normal, Irregular Rhythm Abdomen Exam: Positive: Normal bowel sounds, Soft; Negative: Tenderness Extremity Exam: Negative: Edema Neuro Exam: Positive: Normal Speech, Cranial Nerves 3-12 NL Psych Exam: Positive: Mental status NL, Mood NL Vital Signs Vital Signs Date Time Temp Pulse Resp B/P (MAP) Pulse Ox O2 Delivery O2 Flow Rate FiO2 03/26/21 11:54 98.2 62 18 189/88 (121) 97 Room Air Laboratory Data Labs 24H Laboratory Tests 2 03/26/21 12:34: Immature Granulocyte % (Auto) 0.3, Neutrophils (%) (Auto) 79.3H, Lymphocytes (%) (Auto) 14.3L, Monocytes (%) (Auto) 4.7, Eosinophils (%) (Auto) 0.9, Basophils (%) (Auto) 0.5, Neutrophils # (Auto) 7.0, Lymphocytes # (Auto) 1.3L, Monocytes # (Auto) 0.4, Eosinophils # (Auto) 0.1, Basophils # (Auto) 0.0, Nucleated Red Blood Cells % (auto) 0.0, Urine Color YELLOW, Urine Appearance HAZY, Urine pH 5.0, Urine Specific [place] 1.027, Urine Protein NEGATIVE, Urine Glucose (UA) 3+H, Urine Ketones TRACEH, Urine Blood 2+H, Urine Nitrite NEGATIVE, Urine Bilirubin NEGATIVE, Urine Urobilinogen 0.2, Urine Leukocyte Esterase 2+H, Urine WBC (Auto) 106H, Urine RBC (Auto) 10H, Urine Hyaline Casts (Auto) 0, Urine Bact eria (Auto) 1+H, Urine Squamous Epithelial Cells 0, Urine Sperm (Auto) , Blood Gas Bicarbonate Standard 22.8, Venous Blood pH 7.340, Venous Blood Partial Pressure CO2 46.0, Venous Blood Partial Pressure O2 55.7H, Venous Blood Total Carbon Dioxide 25.7, Venous Blood HCO3 24.3, Venous Blood Oxygen Saturation 87.7H, Venous Blood Base Excess -1.8, Osmolality 320H, Total Bilirubin 1.2H, Direct Bilirubin 0.3H, Aspartate Amino Transf (AST/SGOT) 12, Alanine Aminotransferase (ALT/SGPT) 14, Alkaline Phosphatase 105, Total Protein 6.6, Albumin 3.5, Albumin/Globulin Ratio 1.1L, Lipase 140, B-Hydroxybutyrate 13.64H 03/26/21 12:48: Bedside Glucose (Misc Panel) > 600*H 03/26/21 12:55: POC Lactate (Misc Panel) 1.42 03/26/21 13:01: POC Glucose (Misc Panel) > 700*H, POC Sodium (Misc Panel) 130L, POC Potassium (Misc Panel) 5.2H, POC Chloride (Misc Panel) 94L, POC Total CO2 (Misc Panel) 25.0, POC Blood Urea Nitrogen (Misc Panel 36H, POC Ionized Calcium (Misc Panel) 4.8, POC Creatinine (Misc Panel) 1.3, POC Hematocrit (Misc Panel) 43.0 03/26/21 13:34: POC Troponin I (Misc) 0.03 03/26/21 14:51: Bedside Glucose (Misc Panel) 599*H 03/26/21 14:52: POC Glucose (Misc Panel) 645*H, POC Sodium (Misc Panel) 132L, POC Potassium (Misc Panel) 5.4H, POC Chloride (Misc Panel) 95L, POC Total CO2 (Misc Panel) 27.0, POC Blood Urea Nitrogen (Misc Panel 46H, POC Ionized Calcium (Misc Panel) 4.7, POC Creatinine (Misc Panel) 1.3, POC Hematocrit (Misc Panel) 44.0 CBC/BMP Laboratory Tests 03/26/21 12:34 Microbiology Microbiology 03/26/21 Urine Culture, Received Pending 03/26/21 Respiratory Virus Panel (PCR) (ARNAV) - Final, Complete 03/26/21 Blood Culture, Received Pending 03/26/21 Blood Culture, Received Pending Assessment/Plan Mrs. Craig is an 85-year-old female with insulin-dependent type 2 diabetes mellitus who presents to the ED for increased lethargy and high blood sugar. Daughter tells me that patient only has been taking Metformin and has not took any of her insulin. Patient's HHS is most likely due to noncompliance. We will restart her long-acting and give her sliding scale insulin. Son tells me that he will try to help manage her medications. Otherwise, patient has a UTI. We will treat empirically with ceftriaxone and wait for urine culture results. Plan / VTE VTE Prophylaxis Ordered?: Yes Plan Plan 1. HHS secondary to diabetic noncompliance Patient has elevated glucose with elevated osmolarity Patient has no signs of acidosis or symptoms of DKA Patient has an appetite and wants to drink a lot of water Restart long-acting insulin Start sliding scale insulin Carbohydrate consistent diet Hold Lasix and start IVF 2. Metabolic encephalopathy May be due to a combination of HHS and UTI Treat underlying causes 3. UTI UA demonstrates pyuria and 3+ glucose We will treat empirically with ceftriaxone day 1 Pending urine culture results 4. Persistent atrial fibrillation Continue Coreg Continue apixaban 5. CAD No active chest pain Continue aspirin, atorvastatin, and Coreg 6. DVT prophylaxis Patient is on apixaban Disposition: Pending urine culture results and improvement in glucose CECI VIDAL DO Mar 26, 2021 16:12
[2021-03-26 16:13] LABS: HEMOGLOBIN A1c > 14.0 %
[2021-03-26] MEDS: NS 1,000 ML IV SCH ×2 (16:43→23:57)
--- NOTE | 2021-03-26 18:18 | ECGEPIP ---
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
[2021-03-26] MEDS: HumaLOG INSULIN (NovoLOG) PER UNIT SC SCH ×2 (18:52→21:00)
[2021-03-26 20:45] LABS: CALCIUM LEVEL 9.1 MG/DL (8.8-10.2); CREATININE FOR GFR 1.68 MG/DL (0.55-1.30); GLOMERULAR FILTRATION RATE 30.9 (>32); POTASSIUM SERUM 4.9 MEQ/L (3.5-5.1)
[2021-03-26] MEDS ORDERED: HumaLOG INSULIN (NovoLOG) PER UNIT SC STA (21:07)
[2021-03-26] MEDS: CARVedilol 6.25 MG TAB PO SCH (21:30)
[2021-03-26] MEDS: APIXABAN 5 MG TAB (ELIQUIS) PO SCH (21:30)
[2021-03-27 01:30] VITALS: BP 166/68
[2021-03-27] MEDS: NS 1,000 ML IV SCH ×2 (02:02→12:58)
[2021-03-27 04:00] VITALS: BP 140/60
[2021-03-27 05:34] LABS: HEMATOCRIT 38.1 % (36.0-47.0); HEMOGLOBIN 12.1 g/dl (12.0-15.5); MEAN CORPUSCULAR HEMOGLOBIN 26.9 pg (27.0-33.0); MEAN CORPUSCULAR HGB CONC 31.8 g/dl (32.0-36.5); MEAN CORPUSCULAR VOLUME 84.7 fl (80.0-96.0); PLATELET COUNT, AUTOMATED 167 10^3/uL (150-450); WHITE BLOOD COUNT 7.7 10^3/uL (4.0-10.0)
[2021-03-27 06:05] LABS: CALCIUM LEVEL 8.5 MG/DL (8.8-10.2); CREATININE FOR GFR 1.28 MG/DL (0.55-1.30); GLOMERULAR FILTRATION RATE 42.3 (>32)
[2021-03-27 07:37] VITALS: BP 164/79
[2021-03-27] MEDS: APIXABAN 5 MG TAB (ELIQUIS) PO SCH ×2 (10:23→20:20)
[2021-03-27] MEDS: CYANOCOBALAMIN 500 MCG TAB PO SCH (10:23)
[2021-03-27] MEDS: ASPIRIN 81MG ENTERIC TABLET PO SCH (10:31)
[2021-03-27] MEDS: CARVedilol 6.25 MG TAB PO SCH ×2 (10:31→20:20)
[2021-03-27] MEDS: ATORVASTATIN 20 MG TAB PO SCH (10:31)
[2021-03-27] MEDS: HumaLOG INSULIN (NovoLOG) PER UNIT SC SCH ×4 (10:33→20:21)
[2021-03-27 12:11] VITALS: BP 165/85
--- NOTE | 2021-03-27 13:05 | IPNPDOC ---
Subjective Date Seen The patient was seen on 03/27/21. Subjective Chief Complaint/HPI Mrs. Craig is an 85-year-old female with insulin-dependent type 2 diabetes mellitus who presents to the ED for increased lethargy and high blood sugar. This morning, she denies any chest pain, dyspnea, or abdominal pain. She has no nausea and she feels that she could eat. Blood glucose is better controlled. Pending urine culture results. Objective Physical Examination General Exam: Positive: Alert, Cooperative Eye Exam: Positive: EOMI; Negative: Sclera icteric ENT Exam: Negative: Atraumatic Neck Exam: Positive: Supple Chest Exam: Positive: Clear to auscultation Heart Exam: Positive: Rate Normal, Irregular Rhythm Abdomen Exam: Positive: Normal bowel sounds, Soft; Negative: Tenderness Extremity Exam: Negative: Edema Neuro Exam: Positive: Normal Speech, Cranial Nerves 3-12 NL Psych Exam: Positive: Mental status NL, Mood NL Assessment /Plan Assessment Mrs. Craig is an 85-year-old female with insulin-dependent type 2 diabetes mellitus who presents to the ED for increased lethargy and high blood sugar. Daughter tells me that patient only has been taking Metformin and has not took any of her insulin. Patient's HHS is most likely due to noncompliance. We will restart her long-acting and give her sliding scale insulin. Son tells me that he will try to help manage her medications. Otherwise, patient has a UTI. We will treat empirically with ceftriaxone and wait for urine culture results. Plan/VTE VTE Prophylaxis Ordered?: Yes Plan 1. HHS secondary to diabetic noncompliance Patient has elevated glucose with elevated osmolarity Patient has no signs of acidosis or symptoms of DKA Patient has an appetite and wants to drink a lot of water Continue long-acting insulin Continue sliding scale insulin Carbohydrate consistent diet Resolved 2. Metabolic encephalopathy May be due to a combination of HHS and UTI Improved 3. UTI UA demonstrates pyuria and 3+ glucose Continue ceftriaxone day 2 Pending urine culture results 4. Persistent atrial fibrillation Continue Coreg Continue apixaban 5. CAD No active chest pain Continue aspirin, atorvastatin, and Coreg 6. DVT prophylaxis Patient is on apixaban Disposition: Pending urine culture results VS, I&O, 24H, Fishbone Vital Signs/I&O Vital Signs Date Time Temp Pulse Resp B/P (MAP) Pulse Ox O2 Delivery O2 Flow Rate FiO2 03/27/21 07:37 97.9 82 20 164/79 (107) 95 Room Air I&O- Last 24 Hours up to 6 AM 03/27/21 05:59 Intake Total 1050 ml Balance 1050 ml Laboratory Data 24H LABS Laboratory Tests 2 03/26/21 13:01: POC Glucose (Misc Panel) > 700*H, POC Sodium (Misc Panel) 130L, POC Potassium (Misc Panel) 5.2H, POC Chloride (Misc Panel) 94L, POC Total CO2 (Misc Panel) 25.0, POC Blood Urea Nitrogen (Misc Panel 36H, POC Ionized Calcium (Misc Panel) 4.8, POC Creatinine (Misc Panel) 1.3, POC Hematocrit (Misc Panel) 43.0 03/26/21 13:34: POC Troponin I (Misc) 0.03 03/26/21 14:51: Bedside Glucose (Misc Panel) 599*H 03/26/21 14:52: POC Glucose (Misc Panel) 645*H, POC Sodium (Misc Panel) 132L, POC Potassium (Misc Panel) 5.4H, POC Chloride (Misc Panel) 95L, POC Total CO2 (Misc Panel) 27.0, POC Blood Urea Nitrogen (Misc Panel 46H, POC Ionized Calcium (Misc Panel) 4.7, POC Creatinine (Misc Panel) 1.3, POC Hematocrit (Misc Panel) 44.0 03/26/21 17:47: Bedside Glucose (Misc Panel) 497H 03/26/21 20:01: Anion Gap 9, Glomerular Filtration Rate 30.9L, Calcium Level 9.1 03/26/21 21:09: Bedside Glucose (Misc Panel) 420H 03/27/21 05:17: Anion Gap 6L, Glomerular Filtration Rate 42.3, Calcium Level 8.5L, Nucleated Red Blood Cells % (auto) 0.0, Magnesium Level 2.0 CBC/BMP Laboratory Tests 03/26/21 20:01 03/27/21 05:17 Microbiology Microbiology 03/26/21 Urine Culture, Received Pending 03/26/21 Respiratory Virus Panel (PCR) (ARNAV) - Final, Complete 03/26/21 Blood Culture - Preliminary, Resulted No growth after 24 hours . All specim... 03/26/21 Blood Culture - Preliminary, Resulted No growth after 24 hours . All specim... CECI VIDAL DO Mar 27, 2021 13:05
[2021-03-27] MEDS ORDERED: cefTRIAXone SOD 1 GM in D5W MINI-BAG PLUS 50 ML IV SCH (15:00)
[2021-03-27 15:52] VITALS: BP 137/81
[2021-03-27 20:00] VITALS: BP 112/58
[2021-03-27] MEDS ORDERED: LEVEMIR (INSULIN DETEMIR) 1 UNITS/0.01ML SC SCH (21:00)
[2021-03-28] VITALS: BP 111/58
[2021-03-28 04:00] VITALS: BP 139/88
[2021-03-28 05:50] LABS: HEMATOCRIT 39.1 % (36.0-47.0); HEMOGLOBIN 12.2 g/dl (12.0-15.5); MEAN CORPUSCULAR HEMOGLOBIN 26.8 pg (27.0-33.0); MEAN CORPUSCULAR HGB CONC 31.2 g/dl (32.0-36.5); MEAN CORPUSCULAR VOLUME 85.9 fl (80.0-96.0); PLATELET COUNT, AUTOMATED 162 10^3/uL (150-450); RED BLOOD COUNT 4.55 10^6/uL (4.00-5.40); WHITE BLOOD COUNT 7.3 10^3/uL (4.0-10.0)
[2021-03-28 06:05] LABS: CALCIUM LEVEL 8.4 MG/DL (8.8-10.2); CREATININE FOR GFR 1.14 MG/DL (0.55-1.30); GLOMERULAR FILTRATION RATE 48.3 (>32); POTASSIUM SERUM 3.9 MEQ/L (3.5-5.1)
[2021-03-28 08:00] VITALS: BP 135/80
[2021-03-28 08:16] VITALS: BP 135/80
[2021-03-28] MEDS: APIXABAN 5 MG TAB (ELIQUIS) PO SCH (08:16)
[2021-03-28] MEDS: ASPIRIN 81MG ENTERIC TABLET PO SCH (08:16)
[2021-03-28] MEDS: CARVedilol 6.25 MG TAB PO SCH (08:16)
[2021-03-28] MEDS: CYANOCOBALAMIN 500 MCG TAB PO SCH (08:16)
[2021-03-28] MEDS: ATORVASTATIN 20 MG TAB PO SCH (08:16)
[2021-03-28] MEDS: HumaLOG INSULIN (NovoLOG) PER UNIT SC SCH (08:17)
[2021-03-28] MEDS ORDERED: CEFD1CAP8 PO (08:26)
--- NOTE | 2021-03-28 19:07 | DS.PDOC ---
Discharge Summary General Date of Admission Mar 26, 2021 at 15:22 Date of Discharge March 28, 2021 Discharge Summary PROCEDURES PERFORMED DURING STAY: None. ADMITTING DIAGNOSES: 1. HHS secondary to medication noncompliance 2. Metabolic encephalopathy secondary to HHS and UTI 3. UTI 4. Persistent atrial fibrillation 5. CAD DISCHARGE DIAGNOSES: 1. HHS secondary to medication noncompliance 2. Metabolic encephalopathy secondary to HHS and UTI 3. UTI 4. Persistent atrial fibrillation 5. CAD COMPLICATIONS/CHIEF COMPLAINT: Hhs, Uti. HISTORY OF PRESENT ILLNESS: Mrs. Craig is an 85-year-old female with insulin- dependent type 2 diabetes mellitus who presents to the ED for increased lethargy and high blood sugar. Patient is a poor historian and son present provided most of the history. Patient has been managing her own medications, but patient may have not been compliant with her medications. About a week ago, the son had noticed that she started to act different. She is more lethargic, fatigued, and confused. He denies any recent sick contacts, hospitalizations, or antibiotics. Today he checked her blood sugar and it was over 600. He called the ambulance to bring patient to the hospital. When I spoke to the patient, she looked alert and is very pleasant. She tells me that she is very thirsty and she has been peeing a lot. She denies any fever, chest pain, dyspnea, abdominal pain, diarrhea, or dysuria. She tells me that she has an appetite and she is not nauseous. She wants to drink water, and she feels like she could eat. While in the ED, she is nonfebrile, nontachycardic, and doing well at room air. Blood pressure is elevated. She has no leukocytosis. Her blood glucose is elevated, initially greater than 700. Last glucose check demonstrated glucose of 645. Bicarb is 27. VBG demonstrates a pH of 7.34 and PCO2 of 46. Beta hydroxybutyrate is elevated at 13.64. Patient is not acidotic and she does not have nausea, abdominal pain, or anorexia that comes with DKA. Patient does have HHS. Otherwise, UA demonstrates pyuria. Patient may have a UTI and was empirically started on ceftriaxone. Patient will be admitted for HHS and UTI. HOSPITAL COURSE: On admission, patient was not A&O x3. Patient did well during hospitalization. Glucose came down nicely with basal bolus insulin. Patient was empirically treated with ceftriaxone. Today, urine culture returned with pansensitive E. coli. When I saw patient this morning, I was pleasantly surp rised to find her A&O x3. She was more coherent. She feels ready for home and was discharged home with 5 more days of cefdinir. DISCHARGE MEDICATIONS: Please see below. ALLERGIES: Please see below. PHYSICAL EXAMINATION ON DISCHARGE: VITAL SIGNS: Please see below. GENERAL: Comfortable, in no apparent distress. HEENT: EOMI, sclera clear. NECK: Supple. RESPIRATORY: Lungs clear to auscultation bilaterally, no rales, wheeze or rhonchi. CARDIOVASCULAR: Regular rate and irregular rhythm. ABDOMEN: Soft, nontender, no guarding or rebound tenderness. Normal bowel sounds. MUSCLE SKELETAL: No pitting edema NEUROLOGICAL: CN 312 grossly intact. PSYCHOLOGICAL: Normal mood and affect LABORATORY DATA: Please see below. IMAGING: Radiologist interpretation Chest x-ray There is no acute cardiopulmonary disease. PROGNOSIS: Good ACTIVITY: As tolerated. DIET: Carbohydrate consistent diet DISCHARGE PLAN: Patient to return home and to continue cefdinir 300 mg twice a day for 5 days. Patient will have a total of 7 days of antibiotics. Recommended the patient continues taking her long-acting insulin and measuring blood sugar before meals and at bedtime. If blood sugar drops below 80 or is higher than 400, patient to contact PCP or go to the nearest ER. DISPOSITION: [address] [place] [address]. DISCHARGE INSTRUCTIONS: 1. Follow-up with PCP within a week. ITEMS TO FOLLOWUP ON ON OUTPATIENT: 1. Blood glucose DISCHARGE CONDITION: Stable. Total time spent discharge planning, discharge summary, and medication reconciliation: 45 minutes Vital Signs/I&Os Vital Signs Date Time Temp Pulse Resp B/P (MAP) Pulse Ox O2 Delivery O2 Flow Rate FiO2 03/28/21 08:16 80 135/80 03/28/21 08:00 97.8 18 95 Room Air I&O- Last 24 Hours up to 6 AM 03/28/21 06:00 Intake Total 2260 ml Output Total 0 ml Balance 2260 ml Laboratory Data Labs 24H Laboratory Tests 2 03/27/21 20:07: Bedside Glucose (Misc Panel) 326H 03/28/21 05:33: Nucleated Red Blood Cells % (auto) 0.0, Anion Gap 5L, Glomerular Filtration Rate 48.3, Calcium Level 8.4L, Magnesium Level 2.0 CBC/BMP Laboratory Tests 03/28/21 05:33 FSBS Laboratory Tests Test 03/27/21 20:07 Range/Units Bedside Glucose (Misc Panel) 326 83-110 MG/DL Microbiology Microbiology 03/26/21 Urine Culture - Final, Complete Escherichia Coli 03/26/21 Respiratory Virus Panel (PCR) ([facility]NA[facility]) - Final, Complete 03/26/21 Blood Culture - Preliminary, Resulted No Growth after 48 hours. All Specime... 03/26/21 Blood Culture - Preliminary, Resulted No Growth after 48 hours. All Specime... Discharge Medications Scheduled Apixaban (Eliquis) 5 Mg Tab, 5 MG PO BID, (Reported) Aspirin (Aspirin EC) 81 Mg Tablet.dr, 81 MG PO DAILY, (Reported) Atorvastatin Calcium (Atorvastatin Calcium) 40 Mg Tablet, 40 MG PO DAILY, (Reported) Carvedilol (Carvedilol) 6.25 Mg Tab, 6.25 MG PO BID, (Reported) Cefdinir (Cefdinir) 300 Mg Capsule, 300 MG PO BID Cholecalciferol (Vitamin D3) (D3-2000) 50 Mcg Capsule, 50 MCG PO DAILY, (Reported) Cyanocobalamin (Vitamin B-12) (Vitamin B12) 2,500 Mcg Tablet, 2.5 MG PO DAILY, (Reported) Furosemide (Furosemide) 20 Mg Tablet, 20 MG PO DAILY, (Reported) Insulin Degludec (Tresiba Flextouch U-200) 200 Unit/1 Ml Insuln.pen, 16 UNITS SC QHS, (Reported) Metformin HCl (Metformin HCl ER) 500 Mg Tab.er.24h, 500 MG PO BID, (Reported) Allergies Coded Allergies: No Known Allergies (Unverified , 03/06/19) CECI VIDAL DO Mar 28, 2021 19:07
== END 2021-03-28 09:33 | disposition home health service (06) | DRG 637 ==
LOC: M ED 11:53 → M ED INP 15:22 → M PCU 03-27 01:13
PROVIDERS: ADMIT Internal Medicine; ATTEND Internal Medicine
DX: E11.00 Type 2 diabetes mellitus with hyperosmolarity without nonketotic hyperglycemic-hyperosmolar coma (NKHHC) (principal); G93.41 Metabolic encephalopathy; I48.19 Other persistent atrial fibrillation; N39.0 Urinary tract infection, site not specified; I50.30 Unspecified diastolic (congestive) heart failure; E55.9 Vitamin D deficiency, unspecified; D50.9 Iron deficiency anemia, unspecified; Z79.01 Long term (current) use of anticoagulants; Z79.82 Long term (current) use of aspirin; Z79.4 Long term (current) use of insulin; Z79.899 Other long term (current) drug therapy; E66.01 Morbid (severe) obesity due to excess calories; I12.9 Hypertensive chronic kidney disease with stage 1 through stage 4 chronic kidney disease, or unspecified chronic kidney disease; E53.8 Deficiency of other specified B group vitamins; N18.30 Chronic kidney disease, stage 3 unspecified; M85.88 Other specified disorders of bone density and structure, other site; Z96.652 Presence of left artificial knee joint; Z86.73 Personal history of transient ischemic attack (TIA), and cerebral infarction without residual deficits; I25.10 Atherosclerotic heart disease of native coronary artery without angina pectoris; Z95.5 Presence of coronary angioplasty implant and graft; E04.1 Nontoxic single thyroid nodule; M51.36 Other intervertebral disc degeneration, lumbar region; Z85.3 Personal history of malignant neoplasm of breast; Z20.822 Contact with and (suspected) exposure to COVID-19; Z91.14 Patient's other noncompliance with medication regimen; B96.20 Unspecified Escherichia coli [E. coli] as the cause of diseases classified elsewhere; E11.22 Type 2 diabetes mellitus with diabetic chronic kidney disease

== ENCOUNTER → 2021-03-26 | Outpatient (CLI) | payer MEDICARE ==
[~2021-03-26] MED LIST changes: +ASPI81TA26 PO; +CEFD1CAP8 PO; +FURO20TA2 PO; +METF-838 PO; -TRES1INJ INJ; +TRES1INJ SC; +VITA200012 PO
[2021-03-26 13:44] LABS: BASO % 0.4 % (0.0-1.0); EOS # 0.2 10^3/uL (0.0-0.5); EOS % 1.5 % (0.0-3.0); HEMATOCRIT 44.9 % (36.0-47.0); HEMOGLOBIN 14.3 g/dl (12.0-15.5); LYMPH # 1.8 10^3/uL (1.5-5.0); LYMPH % 17.9 % (24.0-44.0); MEAN CORPUSCULAR HEMOGLOBIN 26.9 pg (27.0-33.0); MEAN CORPUSCULAR HGB CONC 31.8 g/dl (32.0-36.5); MEAN CORPUSCULAR VOLUME 84.4 fl (80.0-96.0); MONO # 0.5 10^3/uL (0.0-0.8); NEUTROPHILS # 7.4 10^3/uL (1.5-8.5); NEUTROPHILS % 74.8 % (36.0-66.0); PLATELET COUNT, AUTOMATED 208 10^3/uL (150-450); RED BLOOD COUNT 5.32 10^6/uL (4.00-5.40); WHITE BLOOD COUNT 9.8 10^3/uL (4.0-10.0)
[2021-03-26 14:25] LABS: ALBUMIN 3.9 GM/DL (3.2-5.2); BILIRUBIN,TOTAL 1.2 MG/DL (0.2-1.0); CALCIUM LEVEL 9.9 MG/DL (8.8-10.2); CREATININE FOR GFR 1.7 MG/DL (0.55-1.30); GLOMERULAR FILTRATION RATE 30.5 (>32); MAGNESIUM LEVEL 2.2 MG/DL (1.8-2.4); POTASSIUM SERUM 4.8 MEQ/L (3.5-5.1); TOTAL PROTEIN 7.3 GM/DL (6.4-8.2)
[2021-03-26 14:49] LABS: HEMOGLOBIN A1c 13.9 %
[2021-03-26 15:11] LABS: PTH INTACT 44.1 PG/ML (18.5-88.0); TOTAL 25(OH) VITAMIN D 64.7 NG/ML (30.0-100.0)
== END ==
LOC: M PLALAB 09:18
PROVIDERS: ATTEND Family Medicine
DX: E55.9 Vitamin D deficiency, unspecified (principal); D50.9 Iron deficiency anemia, unspecified; E11.9 Type 2 diabetes mellitus without complications; I50.30 Unspecified diastolic (congestive) heart failure

== ENCOUNTER → 2021-08-11 | Outpatient (CLI) | payer MEDICARE ==
[~2021-08-11] MED LIST changes: +ASPI81TA26 PO; +CEFD300C41 PO; +FURO20TA2 PO; +METF-838 PO; +VITA200012 PO
[2021-08-11 17:58] LABS: BASO # 0.1 10^3/uL (0.0-0.2); BASO % 0.6 % (0.0-1.0); EOS # 0.2 10^3/uL (0.0-0.5); EOS % 2.6 % (0.0-3.0); HEMOGLOBIN 11.9 g/dl (12.0-15.5); LYMPH # 2.8 10^3/uL (1.5-5.0); LYMPH % 31.5 % (24.0-44.0); MEAN CORPUSCULAR HEMOGLOBIN 27.4 pg (27.0-33.0); MEAN CORPUSCULAR HGB CONC 31.3 g/dl (32.0-36.5); MEAN CORPUSCULAR VOLUME 87.4 fl (80.0-96.0); MONO # 0.5 10^3/uL (0.0-0.8); MONO % 5.4 % (2.0-8.0); NEUTROPHILS # 5.3 10^3/uL (1.5-8.5); NEUTROPHILS % 59.6 % (36.0-66.0); PLATELET COUNT, AUTOMATED 204 10^3/uL (150-450); RED BLOOD COUNT 4.35 10^6/uL (4.00-5.40); WHITE BLOOD COUNT 8.8 10^3/uL (4.0-10.0)
[2021-08-11 18:08] LABS: HEMOGLOBIN A1c 7.7 %
[2021-08-11 18:34] LABS: ALBUMIN 3.5 GM/DL (3.2-5.2); BILIRUBIN,TOTAL 0.7 MG/DL (0.2-1.0); CALCIUM LEVEL 9.8 MG/DL (8.8-10.2); CREATININE FOR GFR 1.77 MG/DL (0.55-1.30); FREE T4 0.99 NG/DL (0.76-1.46); GLOMERULAR FILTRATION RATE 29.1 (>32); THYROID STIMULATING HORMONE 3.85 uIU/ML (0.358-3.740)
== END ==
LOC: M PLALAB 15:55
PROVIDERS: ATTEND Physician Assistant
DX: R53.83 Other fatigue (principal)

== ENCOUNTER 2021-11-14 09:15 | Emergency (ER) | payer MEDICARE ==
[~2021-11-14] VITALS: Ht 165.1 cm; Wt 90.9 kg
[2021-11-14 11:28] LABS: BASO # 0.1 10^3/uL (0.0-0.2); BASO % 0.5 % (0.0-1.0); EOS # 0.1 10^3/uL (0.0-0.5); EOS % 0.6 % (0.0-3.0); HEMATOCRIT 35.9 % (36.0-47.0); HEMOGLOBIN 11.3 g/dl (12.0-15.5); LYMPH # 1.7 10^3/uL (1.5-5.0); LYMPH % 15.4 % (24.0-44.0); MEAN CORPUSCULAR HEMOGLOBIN 26.2 pg (27.0-33.0); MEAN CORPUSCULAR HGB CONC 31.5 g/dl (32.0-36.5); MEAN CORPUSCULAR VOLUME 83.3 fl (80.0-96.0); MONO # 0.4 10^3/uL (0.0-0.8); NEUTROPHILS # 8.8 10^3/uL (1.5-8.5); PLATELET COUNT, AUTOMATED 204 10^3/uL (150-450); RED BLOOD COUNT 4.31 10^6/uL (4.00-5.40); WHITE BLOOD COUNT 11.1 10^3/uL (4.0-10.0)
[2021-11-14 11:39] LABS: INR 1.19; PROTHROMBIN TIME 15.5 SECONDS (12.7-14.5)
[2021-11-14 11:40] LABS: PARTIAL THROMBOPLASTIN TIME 35.8 SECONDS (25.9-37.0)
[2021-11-14] MEDS ORDERED: ROLLMIS8 XX (12:57)
[2021-11-14 17:34] VITALS: BP 162/91
== END 2021-11-14 18:11 | disposition home or self-care (01) ==
LOC: M ED 09:15
DX: R26.9 Unspecified abnormalities of gait and mobility (principal); M48.061 Spinal stenosis, lumbar region without neurogenic claudication; M16.11 Unilateral primary osteoarthritis, right hip; M17.11 Unilateral primary osteoarthritis, right knee; E11.9 Type 2 diabetes mellitus without complications; I48.91 Unspecified atrial fibrillation; N18.30 Chronic kidney disease, stage 3 unspecified; Z86.73 Personal history of transient ischemic attack (TIA), and cerebral infarction without residual deficits; Z85.3 Personal history of malignant neoplasm of breast; Z79.899 Other long term (current) drug therapy; Z79.82 Long term (current) use of aspirin; Z79.01 Long term (current) use of anticoagulants; Z79.84 Long term (current) use of oral hypoglycemic drugs

== ENCOUNTER → 2021-11-25 | Outpatient (CLI) | payer MEDICARE ==
[~2021-11-25] MED LIST changes: +ROLLMIS8 XX
[2021-11-25 14:15] LABS: FREE T4 1.12 NG/DL (0.76-1.46); THYROID STIMULATING HORMONE 4.28 uIU/ML (0.358-3.740)
== END ==
LOC: M PLALAB 08:37
PROVIDERS: ATTEND Physician Assistant
DX: R53.83 Other fatigue (principal)

== ENCOUNTER → 2022-01-01 | Outpatient (CLI) | payer MEDICARE | LOC: M RAD 17:16 | PROVIDERS: ATTEND Family Medicine | DX: G31.84 Mild cognitive impairment of uncertain or unknown etiology (principal) ==

== ENCOUNTER → 2022-03-08 | Outpatient (CLI) | payer MEDICARE ==
[2022-03-08 11:30] LABS: BASO % 0.5 % (0.0-1.0); EOS # 0.3 10^3/uL (0.0-0.5); EOS % 3.1 % (0.0-3.0); HEMATOCRIT 36.6 % (36.0-47.0); HEMOGLOBIN 11.1 g/dl (12.0-15.5); LYMPH # 2.2 10^3/uL (1.5-5.0); LYMPH % 26.7 % (24.0-44.0); MEAN CORPUSCULAR HEMOGLOBIN 25.8 pg (27.0-33.0); MEAN CORPUSCULAR HGB CONC 30.3 g/dl (32.0-36.5); MEAN CORPUSCULAR VOLUME 84.9 fl (80.0-96.0); MONO # 0.4 10^3/uL (0.0-0.8); MONO % 4.8 % (2.0-8.0); NEUTROPHILS # 5.2 10^3/uL (1.5-8.5); NEUTROPHILS % 64.7 % (36.0-66.0); PLATELET COUNT, AUTOMATED 225 10^3/uL (150-450); RED BLOOD COUNT 4.31 10^6/uL (4.00-5.40); WHITE BLOOD COUNT 8.1 10^3/uL (4.0-10.0)
[2022-03-08 11:59] LABS: MAGNESIUM LEVEL 1.8 MG/DL (1.8-2.4)
[2022-03-08 13:03] LABS: HEMOGLOBIN A1c 6.5 % (4.0-6.0)
[2022-03-08 15:49] LABS: ALBUMIN 3.3 G/DL (3.2-5.2); ALKALINE PHOSPHATASE 59 U/L (46-116); ALT/SGPT < 9 U/L (7.0-40); AST/SGOT 14 U/L (<34); BILIRUBIN,TOTAL 0.8 MG/DL (0.3-1.2); BLOOD UREA NITROGEN 30 MG/DL (9-23); CALCIUM LEVEL 9.3 MG/DL (8.3-10.6); CARBON DIOXIDE LEVEL 32 MMOL/L (20-31); CHLORIDE LEVEL 101 MMOL/L (98-107); CHOLESTEROL LEVEL 108 MG/DL (<200); CHOLESTEROL RISK RATIO 2.93 (<5); GLUCOSE, FASTING 85 MG/DL (74-106); HDL CHOLESTEROL 36.8 MG/DL (>40); NON-HDL-C 71 MG/DL; POTASSIUM SERUM 4.4 MMOL/L (3.5-5.1); PTH INTACT 62.1 PG/ML (18.5-88.0); SODIUM LEVEL 141 MMOL/L (136-145); TOTAL PROTEIN 6.5 G/DL (5.7-8.2); TRIGLYCERIDES LEVEL 81 MG/DL (<150)
[2022-03-08 16:03] LABS: GLOMERULAR FILTRATION RATE 32.6 (>32)
== END ==
LOC: M PLALAB 08:05
PROVIDERS: ATTEND Family Medicine
DX: D51.9 Vitamin B12 deficiency anemia, unspecified (principal); I50.30 Unspecified diastolic (congestive) heart failure; E55.9 Vitamin D deficiency, unspecified; E11.9 Type 2 diabetes mellitus without complications; E78.2 Mixed hyperlipidemia; Z79.899 Other long term (current) drug therapy

== ENCOUNTER → 2022-03-31 | Outpatient (CLI) | payer MEDICARE | LOC: M WUC 11:12 | PROVIDERS: ATTEND Student in an Organized Health Care Education/Training Program | DX: M79.671 Pain in right foot (principal) ==

== ENCOUNTER 2022-07-21 16:28 | Emergency (ER) | payer MEDICARE ==
[~2022-07-21] VITALS: Ht 167.6 cm; Wt 127.3 kg
[2022-07-21 16:28] VITALS: BP 180/100
[2022-07-21 18:57] LABS: BASO % 0.4 % (0.0-1.0); EOS # 0.1 10^3/uL (0.0-0.5); EOS % 1.3 % (0.0-3.0); HEMATOCRIT 35.6 % (36.0-47.0); HEMOGLOBIN 10.8 g/dl (12.0-15.5); LYMPH # 1.6 10^3/uL (1.5-5.0); LYMPH % 14.7 % (24.0-44.0); MEAN CORPUSCULAR HEMOGLOBIN 25.1 pg (27.0-33.0); MEAN CORPUSCULAR HGB CONC 30.3 g/dl (32.0-36.5); MEAN CORPUSCULAR VOLUME 82.6 fl (80.0-96.0); MONO # 0.6 10^3/uL (0.0-0.8); NEUTROPHILS # 8.7 10^3/uL (1.5-8.5); NEUTROPHILS % 78.1 % (36.0-66.0); PLATELET COUNT, AUTOMATED 241 10^3/uL (150-450); RED BLOOD COUNT 4.31 10^6/uL (4.00-5.40); WHITE BLOOD COUNT 11.1 10^3/uL (4.0-10.0)
[2022-07-21 19:05] LABS: ERYTHROCYTE SEDIMENTATION RATE 61 mm/hr (0-30)
[2022-07-21 19:08] LABS: PARTIAL THROMBOPLASTIN TIME 30.9 SECONDS (24.8-34.2)
[2022-07-21 19:12] LABS: INR 0.93; PROTHROMBIN TIME 12.7 SECONDS (12.5-14.5)
[2022-07-21 19:18] LABS: ALBUMIN 3.6 G/DL (3.2-5.2); ALKALINE PHOSPHATASE 69 U/L (46-116); ALT/SGPT < 9 U/L (7.0-40); AST/SGOT 17 U/L (<34); BILIRUBIN,DIRECT 0.3 MG/DL (<0.4); BILIRUBIN,TOTAL 0.7 MG/DL (0.3-1.2); BLOOD UREA NITROGEN 33 MG/DL (9-23); CALCIUM LEVEL 9.4 MG/DL (8.3-10.6); CARBON DIOXIDE LEVEL 31 MMOL/L (20-31); CHLORIDE LEVEL 102 MMOL/L (98-107); CREATININE FOR GFR 1.45 MG/DL (0.55-1.30); GLOMERULAR FILTRATION RATE 36.5 (>32); GLUCOSE, FASTING 168 MG/DL (74-106); POTASSIUM SERUM 4.4 MMOL/L (3.5-5.1); SODIUM LEVEL 138 MMOL/L (136-145); TOTAL PROTEIN 6.9 G/DL (5.7-8.2)
[2022-07-21 19:43] LABS: RSV AMPLIFICATION NEGATIVE (NEGATIVE)
== END 2022-07-21 20:24 | disposition home or self-care (01) ==
LOC: M ED 16:28
DX: R60.9 Edema, unspecified (principal); I48.91 Unspecified atrial fibrillation; I25.10 Atherosclerotic heart disease of native coronary artery without angina pectoris; E11.9 Type 2 diabetes mellitus without complications; I10 Essential (primary) hypertension; N18.9 Chronic kidney disease, unspecified; Z86.73 Personal history of transient ischemic attack (TIA), and cerebral infarction without residual deficits; E04.2 Nontoxic multinodular goiter; Z79.01 Long term (current) use of anticoagulants; Z79.82 Long term (current) use of aspirin; Z79.4 Long term (current) use of insulin; Z79.899 Other long term (current) drug therapy

== ENCOUNTER → 2022-08-18 | Outpatient (CLI) | payer MEDICARE ==
[2022-08-18 12:24] LABS: BASO # 0.1 10^3/uL (0.0-0.2); BASO % 0.6 % (0.0-1.0); EOS # 0.2 10^3/uL (0.0-0.5); EOS % 2.5 % (0.0-3.0); HEMATOCRIT 36.4 % (36.0-47.0); HEMOGLOBIN 10.6 g/dl (12.0-15.5); LYMPH # 2.4 10^3/uL (1.5-5.0); LYMPH % 27.5 % (24.0-44.0); MEAN CORPUSCULAR HEMOGLOBIN 24.7 pg (27.0-33.0); MEAN CORPUSCULAR HGB CONC 29.1 g/dl (32.0-36.5); MEAN CORPUSCULAR VOLUME 84.7 fl (80.0-96.0); MONO # 0.4 10^3/uL (0.0-0.8); MONO % 4.9 % (2.0-8.0); NEUTROPHILS # 5.6 10^3/uL (1.5-8.5); NEUTROPHILS % 64.2 % (36.0-66.0); PLATELET COUNT, AUTOMATED 245 10^3/uL (150-450); WHITE BLOOD COUNT 8.7 10^3/uL (4.0-10.0)
[2022-08-18 12:28] LABS: ALBUMIN 3.4 G/DL (3.2-5.2); ALKALINE PHOSPHATASE 66 U/L (46-116); ALT/SGPT < 9 U/L (7.0-40); AST/SGOT 16 U/L (<34); BILIRUBIN,TOTAL 0.9 MG/DL (0.3-1.2); BLOOD UREA NITROGEN 31 MG/DL (9-23); CALCIUM LEVEL 9.1 MG/DL (8.3-10.6); CARBON DIOXIDE LEVEL 32 MMOL/L (20-31); CHLORIDE LEVEL 108 MMOL/L (98-107); CREATININE FOR GFR 1.51 MG/DL (0.55-1.30); GLOMERULAR FILTRATION RATE 34.9 (>32); GLUCOSE, FASTING 80 MG/DL (74-106); POTASSIUM SERUM 4.3 MMOL/L (3.5-5.1); SODIUM LEVEL 144 MMOL/L (136-145); TOTAL PROTEIN 6.5 G/DL (5.7-8.2)
[2022-08-18 12:30] LABS: FERRITIN 43.3 NG/ML (7.3-270.7); FREE T4 1.22 NG/DL (0.89-1.76); THYROID STIMULATING HORMONE 4.021 uIU/ML (0.55-4.78)
[2022-08-19 10:11] LABS: H PYLORI SERUM QUANT IgG ABY 9.09 (0.00-0.79)
[2022-08-20 17:09] LABS: SOLUBLE TRANSFERRIN RECEPTOR 24.4 nmol/L (12.2-27.3); TISSUE TRANSGLUTAMINASE IgA <2 U/mL (0-3)
== END ==
LOC: M PLALAB 07:58
PROVIDERS: ATTEND Family Medicine
DX: D50.9 Iron deficiency anemia, unspecified (principal); I50.30 Unspecified diastolic (congestive) heart failure; Z79.899 Other long term (current) drug therapy

== ENCOUNTER 2022-08-24 14:04 | Inpatient (IN) | payer MEDICARE ==
[~2022-08-24] VITALS: Ht 162.6 cm; Wt 113.5 kg
[2022-08-24 14:58] LABS: BASO % 0.4 % (0.0-1.0); EOS # 0.2 10^3/uL (0.0-0.5); EOS % 1.5 % (0.0-3.0); HEMATOCRIT 35.9 % (36.0-47.0); HEMOGLOBIN 10.8 g/dl (12.0-15.5); LYMPH # 1.9 10^3/uL (1.5-5.0); LYMPH % 18.4 % (24.0-44.0); MEAN CORPUSCULAR HEMOGLOBIN 24.6 pg (27.0-33.0); MEAN CORPUSCULAR HGB CONC 30.1 g/dl (32.0-36.5); MEAN CORPUSCULAR VOLUME 81.8 fl (80.0-96.0); MONO # 0.5 10^3/uL (0.0-0.8); MONO % 4.9 % (2.0-8.0); NEUTROPHILS # 7.6 10^3/uL (1.5-8.5); NEUTROPHILS % 74.5 % (36.0-66.0); PLATELET COUNT, AUTOMATED 227 10^3/uL (150-450); RED BLOOD COUNT 4.39 10^6/uL (4.00-5.40); WHITE BLOOD COUNT 10.2 10^3/uL (4.0-10.0)
[2022-08-24 15:19] LABS: CALCIUM LEVEL 9.2 MG/DL (8.3-10.6); CREATININE FOR GFR 1.65 MG/DL (0.55-1.30); GLOMERULAR FILTRATION RATE 31.5 (>32)
[2022-08-24 19:21] LABS: CK-MB VALUE MASS < 1.0 NG/ML (<3.6)
[2022-08-24 19:23] LABS: ALBUMIN 3.4 G/DL (3.2-5.2); ALKALINE PHOSPHATASE 64 U/L (46-116); ALT/SGPT < 9 U/L (7.0-40); AST/SGOT 18 U/L (<34); BILIRUBIN,DIRECT 0.4 MG/DL (<0.4); BILIRUBIN,TOTAL 0.9 MG/DL (0.3-1.2); CPK CREATINE PHOSPHOKINASE 47 U/L (34-145); MB/CK RELATIVE INDEX 2.12 (< OR =4); TOTAL PROTEIN 6.3 G/DL (5.7-8.2)
[2022-08-24 19:40] LABS: INR 1.02; PROTHROMBIN TIME 13.6 SECONDS (12.5-14.5)
[2022-08-24 19:41] LABS: PARTIAL THROMBOPLASTIN TIME 30.5 SECONDS (24.8-34.2)
[2022-08-24 19:43] LABS: D-DIMER QUANT 750.03 ng/ml (<500)
[2022-08-24] MEDS ORDERED: CARVedilol 6.25 MG TAB PO ONE (19:55)
[2022-08-24] MEDS ORDERED: ISOVUE-370 76% 100ML VIAL As Ordered ONE (20:02)
[2022-08-24 20:37] LABS: CK-MB VALUE MASS < 1.0 NG/ML (<3.6)
[2022-08-24 20:38] LABS: CPK CREATINE PHOSPHOKINASE 38 U/L (34-145); MB/CK RELATIVE INDEX 2.63 (< OR =4)
[2022-08-24] MEDS: INSULIN LISPRO (NovoLOG) PER UNIT SC SCH (21:00)
[2022-08-24] MEDS ORDERED: cefTRIAXone SOD 1 GM in D5W MINI-BAG PLUS 50 ML IV ONE (22:00)
[2022-08-24] MEDS ORDERED: ACETAMINOPHEN TAB 650MG DOSE (2X325MG) PO PRN (23:05)
[2022-08-24] MEDS ORDERED: GLUCOSE 4GM CHEW TABLET PO PRN (23:05)
[2022-08-24] MEDS ORDERED: GLUCAGON INJ 1MG VIAL SC PRN (23:05)
[2022-08-24] MEDS ORDERED: FUROSEMIDE 20MG/2ML VIAL IV ONE (23:05)
[2022-08-24] MEDS ORDERED: DEXTROSE 50% 50ML SYRINGE IV PRN (23:05)
[2022-08-24 23:47] LABS: RSV AMPLIFICATION NEGATIVE (NEGATIVE)
[2022-08-25] MEDS: CLINDAMYCIN 600 MG in IV 1 EA IV SCH ×3 (00:09→13:48)
[2022-08-25] MEDS ORDERED: VITA250T7 PO (00:16)
[2022-08-25] MEDS ORDERED: ELIQ2.5T PO (00:16)
[2022-08-25] MEDS ORDERED: TORS10TA3 PO (00:16)
[2022-08-25] MEDS ORDERED: HOME MED LIST COMPLETE! XX SCH (00:20)
[2022-08-25 01:12] VITALS: BP 190/92; TEMP 97.7; O2SAT 91
[2022-08-25] MEDS: APIXABAN 2.5 MG TAB (ELIQUIS) PO SCH ×3 (01:29→20:14)
[2022-08-25] MEDS ORDERED: **hydrALAZINE** 10 MG TAB PO ONE (02:00)
[2022-08-25 02:42] VITALS: BP 160/80
[2022-08-25 05:43] VITALS: BP 162/80; TEMP 97.3; O2SAT 94
[2022-08-25 06:25] LABS: HEMATOCRIT 32.3 % (36.0-47.0); HEMOGLOBIN 9.8 g/dl (12.0-15.5); MEAN CORPUSCULAR HEMOGLOBIN 24.5 pg (27.0-33.0); MEAN CORPUSCULAR HGB CONC 30.3 g/dl (32.0-36.5); MEAN CORPUSCULAR VOLUME 80.8 fl (80.0-96.0); PLATELET COUNT, AUTOMATED 208 10^3/uL (150-450); WHITE BLOOD COUNT 9.9 10^3/uL (4.0-10.0)
[2022-08-25 07:04] LABS: ALBUMIN 3.3 G/DL (3.2-5.2); ALKALINE PHOSPHATASE 62 U/L (46-116); ALT/SGPT < 9 U/L (7.0-40); AST/SGOT 16 U/L (<34); BILIRUBIN,TOTAL 1.1 MG/DL (0.3-1.2); BLOOD UREA NITROGEN 31 MG/DL (9-23); CALCIUM LEVEL 8.5 MG/DL (8.3-10.6); CARBON DIOXIDE LEVEL 32 MMOL/L (20-31); CHLORIDE LEVEL 101 MMOL/L (98-107); CREATININE FOR GFR 1.59 MG/DL (0.55-1.30); GLOMERULAR FILTRATION RATE 32.8 (>32); GLUCOSE, FASTING 150 MG/DL (74-106); POTASSIUM SERUM 3.6 MMOL/L (3.5-5.1); SODIUM LEVEL 141 MMOL/L (136-145)
[2022-08-25] MEDS: INSULIN LISPRO (NovoLOG) PER UNIT SC SCH ×4 (07:30→20:14)
[2022-08-25 09:01] LABS: CK-MB VALUE MASS < 1.0 NG/ML (<3.6)
[2022-08-25 09:02] LABS: CPK CREATINE PHOSPHOKINASE 56 U/L (34-145); MB/CK RELATIVE INDEX 1.78 (< OR =4)
[2022-08-25 09:34] LABS: TOTAL T3 84.5 NG/DL (60.0-181.0)
[2022-08-25 09:35] LABS: FREE T4 1.15 NG/DL (0.89-1.76); THYROID STIMULATING HORMONE 2.198 uIU/ML (0.55-4.78)
[2022-08-25] MEDS: ATORVASTATIN 20 MG TAB PO SCH (09:55)
[2022-08-25] MEDS: ASPIRIN 81MG ENTERIC TABLET PO SCH (09:55)
[2022-08-25] MEDS: CYANOCOBALAMIN 250 MCG TABLET PO SCH (09:55)
[2022-08-25] MEDS: CARVedilol 6.25 MG TAB PO SCH ×2 (09:56→20:14)
[2022-08-25] MEDS: FUROSEMIDE 40MG/4ML VIAL IV SCH ×2 (09:56→17:58)
[2022-08-25 14:00] VITALS: BP 151/77; TEMP 97.5; O2SAT 92
[2022-08-25 17:15] VITALS: BP 141/93; TEMP 97.5; O2SAT 93
[2022-08-25] MEDS: CEPHALEXIN 500 MG CAP PO SCH ×2 (17:58→20:14)
[2022-08-25 19:51] VITALS: BP 142/86; TEMP 97.9; O2SAT 94
[2022-08-26 05:13] VITALS: TEMP 97.2; O2SAT 88
[2022-08-26 05:56] LABS: HEMATOCRIT 37.8 % (36.0-47.0); HEMOGLOBIN 11.5 g/dl (12.0-15.5); MEAN CORPUSCULAR HEMOGLOBIN 24.6 pg (27.0-33.0); MEAN CORPUSCULAR HGB CONC 30.4 g/dl (32.0-36.5); MEAN CORPUSCULAR VOLUME 80.8 fl (80.0-96.0); PLATELET COUNT, AUTOMATED 195 10^3/uL (150-450); RED BLOOD COUNT 4.68 10^6/uL (4.00-5.40); WHITE BLOOD COUNT 10.3 10^3/uL (4.0-10.0)
[2022-08-26 06:18] VITALS: BP 142/68
[2022-08-26 06:26] LABS: ALBUMIN 3.4 G/DL (3.2-5.2); ALKALINE PHOSPHATASE 64 U/L (46-116); ALT/SGPT < 9 U/L (7.0-40); AST/SGOT 20 U/L (<34); BILIRUBIN,TOTAL 1.7 MG/DL (0.3-1.2); BLOOD UREA NITROGEN 33 MG/DL (9-23); CARBON DIOXIDE LEVEL 29 MMOL/L (20-31); CHLORIDE LEVEL 98 MMOL/L (98-107); CREATININE FOR GFR 1.66 MG/DL (0.55-1.30); GLOMERULAR FILTRATION RATE 31.3 (>32); GLUCOSE, FASTING 125 MG/DL (74-106); POTASSIUM SERUM 3.7 MMOL/L (3.5-5.1); SODIUM LEVEL 138 MMOL/L (136-145); TOTAL PROTEIN 6.6 G/DL (5.7-8.2)
[2022-08-26] MEDS ORDERED: FUROSEMIDE 20MG/2ML VIAL IV SCH (09:00)
[2022-08-26] MEDS: INSULIN LISPRO (NovoLOG) PER UNIT SC SCH ×4 (09:05→21:00)
[2022-08-26] MEDS: CEPHALEXIN 500 MG CAP PO SCH ×4 (09:06→21:08)
[2022-08-26] MEDS: ATORVASTATIN 20 MG TAB PO SCH (09:06)
[2022-08-26] MEDS: APIXABAN 2.5 MG TAB (ELIQUIS) PO SCH ×2 (09:06→21:08)
[2022-08-26] MEDS: ASPIRIN 81MG ENTERIC TABLET PO SCH (09:06)
[2022-08-26] MEDS: CYANOCOBALAMIN 250 MCG TABLET PO SCH (09:07)
[2022-08-26] MEDS: CARVedilol 6.25 MG TAB PO SCH ×2 (09:09→21:08)
[2022-08-26 14:00] VITALS: BP 144/78; TEMP 98.1; O2SAT 92
[2022-08-26 19:35] VITALS: BP 166/82; TEMP 97; O2SAT 92
[2022-08-27 02:00] VITALS: BP 118/57; TEMP 97.7; O2SAT 94
[2022-08-27 05:53] LABS: HEMATOCRIT 34.9 % (36.0-47.0); HEMOGLOBIN 10.7 g/dl (12.0-15.5); MEAN CORPUSCULAR HEMOGLOBIN 24.3 pg (27.0-33.0); MEAN CORPUSCULAR HGB CONC 30.7 g/dl (32.0-36.5); MEAN CORPUSCULAR VOLUME 79.3 fl (80.0-96.0); PLATELET COUNT, AUTOMATED 208 10^3/uL (150-450); WHITE BLOOD COUNT 7.6 10^3/uL (4.0-10.0)
[2022-08-27 06:00] VITALS: BP 109/51; TEMP 97.3; O2SAT 96
[2022-08-27 06:24] LABS: ALBUMIN 3.1 G/DL (3.2-5.2); ALKALINE PHOSPHATASE 58 U/L (46-116); ALT/SGPT < 9 U/L (7.0-40); AST/SGOT 18 U/L (<34); BILIRUBIN,TOTAL 1.3 MG/DL (0.3-1.2); BLOOD UREA NITROGEN 40 MG/DL (9-23); CALCIUM LEVEL 8.4 MG/DL (8.3-10.6); CARBON DIOXIDE LEVEL 32 MMOL/L (20-31); CHLORIDE LEVEL 99 MMOL/L (98-107); CREATININE FOR GFR 1.84 MG/DL (0.55-1.30); GLOMERULAR FILTRATION RATE 27.8 (>32); GLUCOSE, FASTING 158 MG/DL (74-106); POTASSIUM SERUM 3.6 MMOL/L (3.5-5.1); SODIUM LEVEL 138 MMOL/L (136-145)
[2022-08-27] MEDS ORDERED: PILL CUTTER 1 EACH XX PRN (07:30)
[2022-08-27] MEDS ORDERED: TORSEMIDE 20 MG TAB PO SCH ×2 (09:00)
[2022-08-27] MEDS: CYANOCOBALAMIN 250 MCG TABLET PO SCH (09:18)
[2022-08-27] MEDS: ASPIRIN 81MG ENTERIC TABLET PO SCH (09:18)
[2022-08-27] MEDS: CEPHALEXIN 500 MG CAP PO SCH ×4 (09:19→20:39)
[2022-08-27] MEDS: ATORVASTATIN 20 MG TAB PO SCH (09:19)
[2022-08-27] MEDS: APIXABAN 2.5 MG TAB (ELIQUIS) PO SCH ×2 (09:19→20:39)
[2022-08-27] MEDS: INSULIN LISPRO (NovoLOG) PER UNIT SC SCH ×4 (09:22→20:40)
[2022-08-27] MEDS: CARVedilol 6.25 MG TAB PO SCH ×2 (09:22→20:39)
[2022-08-27 14:00] VITALS: BP 98/52; TEMP 97.5; O2SAT 94
[2022-08-27 20:00] VITALS: BP 127/79; TEMP 98.2; O2SAT 90
[2022-08-27 22:00] VITALS: BP 112/64; TEMP 97.7; O2SAT 94
[2022-08-28 06:00] VITALS: BP 128/78; TEMP 97.2; O2SAT 92
[2022-08-28 06:27] LABS: HEMOGLOBIN 10.5 g/dl (12.0-15.5); MEAN CORPUSCULAR HEMOGLOBIN 24.5 pg (27.0-33.0); MEAN CORPUSCULAR HGB CONC 30.9 g/dl (32.0-36.5); MEAN CORPUSCULAR VOLUME 79.3 fl (80.0-96.0); PLATELET COUNT, AUTOMATED 229 10^3/uL (150-450); RED BLOOD COUNT 4.29 10^6/uL (4.00-5.40); WHITE BLOOD COUNT 9.1 10^3/uL (4.0-10.0)
[2022-08-28 06:55] LABS: ALBUMIN 3.1 G/DL (3.2-5.2); ALKALINE PHOSPHATASE 60 U/L (46-116); ALT/SGPT < 9 U/L (7.0-40); AST/SGOT 15 U/L (<34); BILIRUBIN,TOTAL 0.9 MG/DL (0.3-1.2); BLOOD UREA NITROGEN 51 MG/DL (9-23); CALCIUM LEVEL 8.9 MG/DL (8.3-10.6); CARBON DIOXIDE LEVEL 30 MMOL/L (20-31); CHLORIDE LEVEL 99 MMOL/L (98-107); CREATININE FOR GFR 1.95 MG/DL (0.55-1.30); GLUCOSE, FASTING 174 MG/DL (74-106); POTASSIUM SERUM 3.8 MMOL/L (3.5-5.1); SODIUM LEVEL 138 MMOL/L (136-145)
[2022-08-28] MEDS: INSULIN LISPRO (NovoLOG) PER UNIT SC SCH ×4 (08:00→20:34)
[2022-08-28] MEDS: ASPIRIN 81MG ENTERIC TABLET PO SCH (08:00)
[2022-08-28] MEDS: ATORVASTATIN 20 MG TAB PO SCH (08:01)
[2022-08-28] MEDS: CYANOCOBALAMIN 250 MCG TABLET PO SCH (08:01)
[2022-08-28] MEDS: CEPHALEXIN 500 MG CAP PO SCH ×4 (08:01→21:09)
[2022-08-28] MEDS: APIXABAN 2.5 MG TAB (ELIQUIS) PO SCH ×2 (08:01→21:09)
[2022-08-28] MEDS: CARVedilol 6.25 MG TAB PO SCH ×2 (08:02→21:13)
[2022-08-28] MEDS: LEVEMIR (INSULIN DETEMIR) 1 UNITS/0.01ML SC SCH (21:13)
[2022-08-29 06:00] VITALS: BP 117/57; TEMP 97.9; O2SAT 91
[2022-08-29 07:16] LABS: HEMATOCRIT 33.4 % (36.0-47.0); HEMOGLOBIN 10.1 g/dl (12.0-15.5); MEAN CORPUSCULAR HEMOGLOBIN 24.5 pg (27.0-33.0); MEAN CORPUSCULAR HGB CONC 30.2 g/dl (32.0-36.5); MEAN CORPUSCULAR VOLUME 80.9 fl (80.0-96.0); PLATELET COUNT, AUTOMATED 226 10^3/uL (150-450); RED BLOOD COUNT 4.13 10^6/uL (4.00-5.40); WHITE BLOOD COUNT 8.4 10^3/uL (4.0-10.0)
[2022-08-29 07:43] LABS: ALKALINE PHOSPHATASE 58 U/L (46-116); ALT/SGPT < 9 U/L (7.0-40); AST/SGOT 13 U/L (<34); BILIRUBIN,TOTAL 0.6 MG/DL (0.3-1.2); BLOOD UREA NITROGEN 48 MG/DL (9-23); CALCIUM LEVEL 8.4 MG/DL (8.3-10.6); CARBON DIOXIDE LEVEL 32 MMOL/L (20-31); CHLORIDE LEVEL 101 MMOL/L (98-107); CREATININE FOR GFR 1.84 MG/DL (0.55-1.30); GLOMERULAR FILTRATION RATE 27.8 (>32); GLUCOSE, FASTING 195 MG/DL (74-106); POTASSIUM SERUM 3.9 MMOL/L (3.5-5.1); SODIUM LEVEL 139 MMOL/L (136-145); TOTAL PROTEIN 5.8 G/DL (5.7-8.2)
[2022-08-29] MEDS: INSULIN LISPRO (NovoLOG) PER UNIT SC SCH ×4 (08:22→21:00)
[2022-08-29] MEDS: ATORVASTATIN 20 MG TAB PO SCH (08:23)
[2022-08-29] MEDS: CEPHALEXIN 500 MG CAP PO SCH ×4 (08:23→22:23)
[2022-08-29] MEDS: CYANOCOBALAMIN 250 MCG TABLET PO SCH (08:23)
[2022-08-29] MEDS: ASPIRIN 81MG ENTERIC TABLET PO SCH (08:23)
[2022-08-29] MEDS: APIXABAN 2.5 MG TAB (ELIQUIS) PO SCH ×2 (08:23→22:23)
[2022-08-29] MEDS: CARVedilol 6.25 MG TAB PO SCH ×2 (08:24→22:23)
[2022-08-29 20:49] VITALS: BP 162/82; TEMP 97.5; O2SAT 94
[2022-08-29] MEDS: LEVEMIR (INSULIN DETEMIR) 1 UNITS/0.01ML SC SCH (22:24)
[2022-08-30 06:17] LABS: HEMOGLOBIN 10.1 g/dl (12.0-15.5); MEAN CORPUSCULAR HEMOGLOBIN 24.7 pg (27.0-33.0); MEAN CORPUSCULAR HGB CONC 30.6 g/dl (32.0-36.5); MEAN CORPUSCULAR VOLUME 80.7 fl (80.0-96.0); PLATELET COUNT, AUTOMATED 218 10^3/uL (150-450); RED BLOOD COUNT 4.09 10^6/uL (4.00-5.40); WHITE BLOOD COUNT 8.1 10^3/uL (4.0-10.0)
[2022-08-30 06:20] VITALS: BP 138/56; TEMP 97.2; O2SAT 93
[2022-08-30 06:52] LABS: ALBUMIN 2.9 G/DL (3.2-5.2); ALKALINE PHOSPHATASE 59 U/L (46-116); ALT/SGPT < 9 U/L (7.0-40); AST/SGOT 11 U/L (<34); BILIRUBIN,TOTAL 0.6 MG/DL (0.3-1.2); BLOOD UREA NITROGEN 45 MG/DL (9-23); CALCIUM LEVEL 8.3 MG/DL (8.3-10.6); CARBON DIOXIDE LEVEL 30 MMOL/L (20-31); CHLORIDE LEVEL 101 MMOL/L (98-107); CREATININE FOR GFR 1.59 MG/DL (0.55-1.30); GLOMERULAR FILTRATION RATE 32.8 (>32); GLUCOSE, FASTING 203 MG/DL (74-106); POTASSIUM SERUM 4.1 MMOL/L (3.5-5.1); SODIUM LEVEL 138 MMOL/L (136-145); TOTAL PROTEIN 5.7 G/DL (5.7-8.2)
[2022-08-30] MEDS: APIXABAN 2.5 MG TAB (ELIQUIS) PO SCH ×2 (08:19→22:07)
[2022-08-30] MEDS: CARVedilol 6.25 MG TAB PO SCH ×2 (08:20→22:14)
[2022-08-30] MEDS: ASPIRIN 81MG ENTERIC TABLET PO SCH (08:20)
[2022-08-30] MEDS: CYANOCOBALAMIN 250 MCG TABLET PO SCH (08:20)
[2022-08-30] MEDS: ATORVASTATIN 20 MG TAB PO SCH (08:20)
[2022-08-30] MEDS: CEPHALEXIN 500 MG CAP PO SCH ×4 (08:20→22:07)
[2022-08-30] MEDS: INSULIN LISPRO (NovoLOG) PER UNIT SC SCH ×4 (08:21→21:00)
[2022-08-30 20:00] VITALS: BP 120/62; TEMP 97.2; O2SAT 94
[2022-08-30] MEDS: LEVEMIR (INSULIN DETEMIR) 1 UNITS/0.01ML SC SCH (22:07)
[2022-08-30 22:14] VITALS: BP 120/60
[2022-08-31 06:12] VITALS: BP 120/55; TEMP 97.5; O2SAT 96
[2022-08-31 06:40] LABS: HEMATOCRIT 34.5 % (36.0-47.0); HEMOGLOBIN 10.4 g/dl (12.0-15.5); MEAN CORPUSCULAR HEMOGLOBIN 24.6 pg (27.0-33.0); MEAN CORPUSCULAR HGB CONC 30.1 g/dl (32.0-36.5); MEAN CORPUSCULAR VOLUME 81.6 fl (80.0-96.0); PLATELET COUNT, AUTOMATED 225 10^3/uL (150-450); RED BLOOD COUNT 4.23 10^6/uL (4.00-5.40); WHITE BLOOD COUNT 8.9 10^3/uL (4.0-10.0)
[2022-08-31 07:05] LABS: ALBUMIN 3.1 G/DL (3.2-5.2); ALKALINE PHOSPHATASE 65 U/L (46-116); ALT/SGPT < 9 U/L (7.0-40); AST/SGOT 10 U/L (<34); BILIRUBIN,TOTAL 0.6 MG/DL (0.3-1.2); BLOOD UREA NITROGEN 44 MG/DL (9-23); CALCIUM LEVEL 9.3 MG/DL (8.3-10.6); CARBON DIOXIDE LEVEL 31 MMOL/L (20-31); CHLORIDE LEVEL 102 MMOL/L (98-107); CREATININE FOR GFR 1.53 MG/DL (0.55-1.30); GLOMERULAR FILTRATION RATE 34.3 (>32); GLUCOSE, FASTING 204 MG/DL (74-106); POTASSIUM SERUM 4.6 MMOL/L (3.5-5.1); SODIUM LEVEL 139 MMOL/L (136-145)
[2022-08-31] MEDS: ATORVASTATIN 20 MG TAB PO SCH (08:19)
[2022-08-31] MEDS: INSULIN LISPRO (NovoLOG) PER UNIT SC SCH (08:19)
[2022-08-31] MEDS: ASPIRIN 81MG ENTERIC TABLET PO SCH (08:19)
[2022-08-31] MEDS: CARVedilol 6.25 MG TAB PO SCH (08:19)
[2022-08-31] MEDS: CYANOCOBALAMIN 250 MCG TABLET PO SCH (08:19)
[2022-08-31] MEDS: APIXABAN 2.5 MG TAB (ELIQUIS) PO SCH (08:19)
[2022-08-31] MEDS ORDERED: TORS10TA3 PO (09:01)
[2022-08-31] MEDS ORDERED: METF-839 PO (09:01)
== END 2022-08-31 09:18 | disposition home health service (06) | DRG 291 ==
LOC: M ED 14:04 → M ED INP 23:02 → M MSPAV 08-25 00:39
PROVIDERS: ADMIT Internal Medicine; ATTEND Internal Medicine
PROC: B246ZZZ Ultrasonography of Right and Left Heart (ICD-10-PCS; principal; 2022-08-28)
DX: I13.0 Hypertensive heart and chronic kidney disease with heart failure and stage 1 through stage 4 chronic kidney disease, or unspecified chronic kidney disease (principal); I50.33 Acute on chronic diastolic (congestive) heart failure; L03.115 Cellulitis of right lower limb; E11.22 Type 2 diabetes mellitus with diabetic chronic kidney disease; I48.91 Unspecified atrial fibrillation; N18.30 Chronic kidney disease, stage 3 unspecified; I25.10 Atherosclerotic heart disease of native coronary artery without angina pectoris; Z95.5 Presence of coronary angioplasty implant and graft; Z79.01 Long term (current) use of anticoagulants; Z79.82 Long term (current) use of aspirin; Z79.4 Long term (current) use of insulin; Z79.84 Long term (current) use of oral hypoglycemic drugs; Z79.899 Other long term (current) drug therapy; Z20.822 Contact with and (suspected) exposure to COVID-19

== ENCOUNTER → 2022-09-30 | Outpatient (REF) | payer MEDICARE ==
[~2022-09-30] MED LIST changes: +ELIQ2.5T PO; +METF-839 PO; +TORS10TA3 PO; +VITA250T7 PO
== END ==
LOC: M SFHCPLAZ 11:06
PROVIDERS: ATTEND Family Medicine
DX: I50.30 Unspecified diastolic (congestive) heart failure (principal)

== ENCOUNTER 2022-10-08 14:48 | Outpatient (CLI) | payer MEDICARE ==
[~2022-10-08] VITALS: Ht 165.1 cm; Wt 114.0 kg
[~2022-10-08 14:48] MED LIST changes: +ALBUTEROL SULFATE 2.5MG/0.5ML INH NEB SOLN INH PRN; +EPINEPHrine INJ 1 MG/ML 1ML AMP IM PRN; +diphenhydrAMINE 50MG/ML VIAL IV PRN; +methylPREDNISolone 125MG 2ML VIAL IV PRN
[2022-10-08] MEDS ORDERED: FERRIC CARBOXYMALTOSE INJ 750 MG in NS 250 ML (>50kg) IV ONE ×3 (15:00)
[2022-10-08] MEDS ORDERED: NS 1,000 ML IV SCH (15:00)
[2022-10-08 15:10] VITALS: BP 144/58; O2SAT 95
[2022-10-08 16:31] VITALS: BP 145/73; O2SAT 96
== END 2022-10-08 16:35 ==
LOC: M INFU 14:48
PROVIDERS: ATTEND Family Medicine
DX: D50.9 Iron deficiency anemia, unspecified (principal); Z88.8 Allergy status to other drugs, medicaments and biological substances
CPT/HCPCS: 96365; J1439

== ENCOUNTER → 2022-12-10 | Outpatient (CLI) | payer MEDICARE ==
[~2022-12-10] MED LIST changes: -ALBUTEROL SULFATE 2.5MG/0.5ML INH NEB SOLN INH PRN; -EPINEPHrine INJ 1 MG/ML 1ML AMP IM PRN; -diphenhydrAMINE 50MG/ML VIAL IV PRN; -methylPREDNISolone 125MG 2ML VIAL IV PRN
[2022-12-10 11:35] LABS: BASO % 0.4 % (0.0-1.0); EOS # 0.2 10^3/uL (0.0-0.5); EOS % 2.7 % (0.0-3.0); HEMATOCRIT 38.1 % (36.0-47.0); HEMOGLOBIN 11.8 g/dl (12.0-15.5); LYMPH # 2.5 10^3/uL (1.5-5.0); LYMPH % 30.7 % (24.0-44.0); MEAN CORPUSCULAR HEMOGLOBIN 26.8 pg (27.0-33.0); MEAN CORPUSCULAR VOLUME 86.6 fl (80.0-96.0); MONO # 0.4 10^3/uL (0.0-0.8); NEUTROPHILS # 5.1 10^3/uL (1.5-8.5); PLATELET COUNT, AUTOMATED 207 10^3/uL (150-450); WHITE BLOOD COUNT 8.3 10^3/uL (4.0-10.0)
[2022-12-10 11:46] LABS: ALBUMIN 3.3 G/DL (3.2-5.2); BILIRUBIN,TOTAL 0.8 MG/DL (0.3-1.2); CALCIUM LEVEL 9.3 MG/DL (8.3-10.6); CREATININE FOR GFR 1.61 MG/DL (0.55-1.30); GLOMERULAR FILTRATION RATE 32.3 (>32); MAGNESIUM LEVEL 1.8 MG/DL (1.8-2.4); POTASSIUM SERUM 4.2 MMOL/L (3.5-5.1); TOTAL PROTEIN 6.4 G/DL (5.7-8.2)
[2022-12-10 11:47] LABS: FERRITIN 215.5 NG/ML (7.3-270.7)
[2022-12-10 12:01] LABS: HEMOGLOBIN A1c 8.1 % (4.0-6.0)
[2022-12-11 10:04] LABS: PTH INTACT 51.1 PG/ML (18.5-88.0)
== END ==
LOC: M PLALAB 08:35
PROVIDERS: ATTEND Family Medicine
DX: I50.30 Unspecified diastolic (congestive) heart failure (principal); Z79.899 Other long term (current) drug therapy

== ENCOUNTER → 2023-05-26 | Outpatient (REF) | payer MEDICARE ==
[~2023-05-26] MED LIST changes: +CEFD1CAP9 PO; -CEFD300C41 PO
== END ==
LOC: M SFHCPLAZ 17:25
PROVIDERS: ATTEND Family Medicine
DX: D50.9 Iron deficiency anemia, unspecified (principal); E11.9 Type 2 diabetes mellitus without complications; E78.2 Mixed hyperlipidemia; E55.9 Vitamin D deficiency, unspecified; I50.32 Chronic diastolic (congestive) heart failure

== ENCOUNTER → 2023-05-27 | Outpatient (CLI) | payer MEDICARE ==
[2023-05-27 13:21] LABS: BASO % 0.5 % (0.0-1.0); EOS # 0.3 10^3/uL (0.0-0.5); EOS % 3.7 % (0.0-3.0); HEMOGLOBIN 12.1 g/dl (12.0-15.5); LYMPH # 2.5 10^3/uL (1.5-5.0); LYMPH % 30.1 % (24.0-44.0); MEAN CORPUSCULAR HEMOGLOBIN 27.4 pg (27.0-33.0); MEAN CORPUSCULAR VOLUME 88.2 fl (80.0-96.0); MONO # 0.4 10^3/uL (0.0-0.8); MONO % 4.5 % (2.0-8.0); NEUTROPHILS % 60.8 % (36.0-66.0); PLATELET COUNT, AUTOMATED 222 10^3/uL (150-450); RED BLOOD COUNT 4.42 10^6/uL (4.00-5.40); WHITE BLOOD COUNT 8.3 10^3/uL (4.0-10.0)
[2023-05-27 13:25] LABS: FREE T4 1.24 NG/DL (0.89-1.76)
[2023-05-27 13:26] LABS: FERRITIN 157.2 NG/ML (7.3-270.7); THYROID STIMULATING HORMONE 4.119 uIU/ML (0.55-4.78)
[2023-05-27 13:27] LABS: ALBUMIN 3.4 G/DL (3.2-5.2); ALKALINE PHOSPHATASE 78 U/L (46-116); ALT/SGPT < 9 U/L (7.0-40); AST/SGOT 10 U/L (<34); BILIRUBIN,TOTAL 0.8 MG/DL (0.3-1.2); BLOOD UREA NITROGEN 31 MG/DL (9-23); CALCIUM LEVEL 9.7 MG/DL (8.3-10.6); CARBON DIOXIDE LEVEL 35 MMOL/L (20-31); CHLORIDE LEVEL 105 MMOL/L (98-107); CHOLESTEROL LEVEL 123 MG/DL (<200); CHOLESTEROL RISK RATIO 3.62 (<5); CREATININE FOR GFR 1.48 MG/DL (0.55-1.30); GLOMERULAR FILTRATION RATE 35.6 (>32); GLUCOSE, FASTING 190 MG/DL (74-106); HDL CHOLESTEROL 33.9 MG/DL (>40); LDL CHOLESTEROL 71.7 MG/DL (<100); NON-HDL-C 89.1 MG/DL; POTASSIUM SERUM 4.5 MMOL/L (3.5-5.1); SODIUM LEVEL 145 MMOL/L (136-145); TOTAL 25(OH) VITAMIN D 74.3 NG/ML (20.0-100.0); TOTAL PROTEIN 6.4 G/DL (5.7-8.2); TRIGLYCERIDES LEVEL 87 MG/DL (<150)
[2023-05-27 13:30] LABS: HEMOGLOBIN A1c 8.5 % (4.0-6.0)
== END ==
LOC: M PLALAB 08:50
PROVIDERS: ATTEND Family Medicine
DX: I50.32 Chronic diastolic (congestive) heart failure (principal); E55.9 Vitamin D deficiency, unspecified; D50.9 Iron deficiency anemia, unspecified; E11.9 Type 2 diabetes mellitus without complications; E78.2 Mixed hyperlipidemia

== ENCOUNTER → 2023-10-25 | Outpatient (REF) | payer MEDICARE | LOC: M SFHCPLAZ 10:56 | PROVIDERS: ATTEND Family Medicine | DX: D50.9 Iron deficiency anemia, unspecified (principal); E11.9 Type 2 diabetes mellitus without complications; E78.2 Mixed hyperlipidemia; E55.9 Vitamin D deficiency, unspecified; I50.32 Chronic diastolic (congestive) heart failure ==

== ENCOUNTER → 2023-10-25 | Outpatient (CLI) | payer MEDICARE ==
[2023-10-25 12:45] LABS: BASO % 0.4 % (0.0-1.0); EOS # 0.3 10^3/uL (0.0-0.5); EOS % 3.4 % (0.0-3.0); HEMATOCRIT 38.1 % (36.0-47.0); HEMOGLOBIN 11.9 g/dl (12.0-15.5); LYMPH # 2.6 10^3/uL (1.5-5.0); MEAN CORPUSCULAR HEMOGLOBIN 27.2 pg (27.0-33.0); MEAN CORPUSCULAR HGB CONC 31.2 g/dl (32.0-36.5); MONO # 0.5 10^3/uL (0.0-0.8); NEUTROPHILS # 6.4 10^3/uL (1.5-8.5); NEUTROPHILS % 64.7 % (36.0-66.0); PLATELET COUNT, AUTOMATED 249 10^3/uL (150-450); RED BLOOD COUNT 4.38 10^6/uL (4.00-5.40); WHITE BLOOD COUNT 9.8 10^3/uL (4.0-10.0)
[2023-10-25 12:59] LABS: INR 1.33; PARTIAL THROMBOPLASTIN TIME 34.1 SECONDS (24.8-34.2); PROTHROMBIN TIME 16.1 SECONDS (12.5-14.5)
[2023-10-25 13:20] LABS: ALBUMIN 3.5 G/DL (3.2-5.2); ALKALINE PHOSPHATASE 74 U/L (46-116); ALT/SGPT < 9 U/L (7.0-40); AST/SGOT 9 U/L (<34); BILIRUBIN,TOTAL 1.1 MG/DL (0.3-1.2); BLOOD UREA NITROGEN 27 MG/DL (9-23); CALCIUM LEVEL 10.1 MG/DL (8.3-10.6); CARBON DIOXIDE LEVEL 34 MMOL/L (20-31); CHLORIDE LEVEL 104 MMOL/L (98-107); CREATININE FOR GFR 1.53 MG/DL (0.55-1.30); FERRITIN 139.3 NG/ML (7.3-270.7); GLOMERULAR FILTRATION RATE 34.2 (>32); GLUCOSE, FASTING 106 MG/DL (74-106); POTASSIUM SERUM 4.6 MMOL/L (3.5-5.1); SODIUM LEVEL 147 MMOL/L (136-145); TOTAL 25(OH) VITAMIN D 59.3 NG/ML (20.0-100.0); TOTAL PROTEIN 6.6 G/DL (5.7-8.2)
[2023-10-25 13:21] LABS: THYROID STIMULATING HORMONE 3.633 uIU/ML (0.55-4.78)
[2023-10-25 13:22] LABS: FREE T4 1.34 NG/DL (0.89-1.76)
[2023-10-25 13:32] LABS: HEMOGLOBIN A1c 7.2 % (4.0-6.0)
[2023-11-04 01:57] LABS: ALPHA 2-MACROGLOBULINS,QN 280 mg/dL (106-279); ALT (SGPT) P5P 5 U/L (6-29); APOLIPOPROTEIN A-1 126 mg/dL (101-198); BILIRUBIN, TOTAL 0.8 mg/dL (0.2-1.2); FIBROSIS SCORE 0.38; FIBROSIS STAGE MINIMAL FIBROSIS (F0); GGT 6 U/L (3-65); HAPTOGLOBIN 317 mg/dL (43-212); NECROINFLAM ACT GRADE NO ACTIVITY (A0); NECROINFLAM ACT SCORE 0.01
== END ==
LOC: M PLALAB 11:29
PROVIDERS: ATTEND Family Medicine
DX: D50.9 Iron deficiency anemia, unspecified (principal); I50.32 Chronic diastolic (congestive) heart failure; E78.2 Mixed hyperlipidemia; E11.9 Type 2 diabetes mellitus without complications; E55.9 Vitamin D deficiency, unspecified; K74.00 Hepatic fibrosis, unspecified

== ENCOUNTER → 2023-11-15 | Outpatient (REF) | payer MEDICARE | LOC: M SFHCPLAZ 10:07 | PROVIDERS: ATTEND Family Medicine | DX: D50.9 Iron deficiency anemia, unspecified (principal); E11.9 Type 2 diabetes mellitus without complications; E78.2 Mixed hyperlipidemia; E55.9 Vitamin D deficiency, unspecified; I50.32 Chronic diastolic (congestive) heart failure ==

== ENCOUNTER → 2024-04-27 | Outpatient (CLI) | payer MEDICARE ==
[2024-04-27 17:43] LABS: BASO % 0.5 % (0.0-1.0); EOS # 0.2 10^3/uL (0.0-0.5); EOS % 2.3 % (0.0-3.0); HEMOGLOBIN 11.4 g/dl (12.0-15.5); LYMPH # 2.1 10^3/uL (1.5-5.0); LYMPH % 23.9 % (24.0-44.0); MEAN CORPUSCULAR HEMOGLOBIN 26.2 pg (27.0-33.0); MEAN CORPUSCULAR VOLUME 87.4 fl (80.0-96.0); MONO # 0.5 10^3/uL (0.0-0.8); MONO % 5.2 % (2.0-8.0); NEUTROPHILS % 67.6 % (36.0-66.0); PLATELET COUNT, AUTOMATED 229 10^3/uL (150-450); RED BLOOD COUNT 4.35 10^6/uL (4.00-5.40); WHITE BLOOD COUNT 8.8 10^3/uL (4.0-10.0)
[2024-04-27 18:01] LABS: HEMOGLOBIN A1c 7.1 % (4.0-6.0)
[2024-04-27 18:02] LABS: ALBUMIN 3.5 G/DL (3.2-5.2); ALKALINE PHOSPHATASE 67 U/L (35-104); ALT/SGPT 10 U/L (7.0-40); AST/SGOT 12 U/L (<34); BILIRUBIN,TOTAL 0.8 MG/DL (0.3-1.2); BLOOD UREA NITROGEN 38 MG/DL (9-23); CALCIUM LEVEL 9.8 MG/DL (8.3-10.6); CARBON DIOXIDE LEVEL 34 MMOL/L (20-31); CHLORIDE LEVEL 103 MMOL/L (98-107); CREATININE FOR GFR 1.59 MG/DL (0.55-1.30); GLOMERULAR FILTRATION RATE 32.7 (>32); GLUCOSE, FASTING 111 MG/DL (74-106); POTASSIUM SERUM 4.6 MMOL/L (3.5-5.1); SODIUM LEVEL 142 MMOL/L (136-145); TOTAL PROTEIN 6.8 G/DL (5.7-8.2)
[2024-04-27 18:03] LABS: PTH INTACT 63.8 PG/ML (18.5-88.0)
[2024-04-27 18:04] LABS: FERRITIN 120.7 NG/ML (7.3-270.7); TOTAL 25(OH) VITAMIN D 67.3 NG/ML (20.0-100.0); VITAMIN B12 LEVEL 764 PG/ML (211-911)
== END ==
LOC: M PLALAB 14:09
PROVIDERS: ATTEND Family Medicine
DX: K74.00 Hepatic fibrosis, unspecified (principal); D50.9 Iron deficiency anemia, unspecified; I50.32 Chronic diastolic (congestive) heart failure; E11.9 Type 2 diabetes mellitus without complications; E55.9 Vitamin D deficiency, unspecified; D51.9 Vitamin B12 deficiency anemia, unspecified

== ENCOUNTER → 2024-04-30 | Outpatient (CLI) | payer MEDICARE | LOC: M WHC 13:37 | PROVIDERS: ATTEND Family Medicine | DX: Z12.31 Encounter for screening mammogram for malignant neoplasm of breast (principal) ==

== ENCOUNTER → 2024-11-06 | Outpatient (REF) | payer MEDICARE, MEDICAID ==
[~2024-11-06] MED LIST changes: +GLIM1TAB84 PO; +METF500S3 PO; -PRAV40TA2 PO; +PRAV40TA85 PO
[2024-11-06 08:59] LABS: PLATELET COUNT, AUTOMATED 215 10^3/uL (150-450)
[2024-11-06 09:29] LABS: IRON (FE) 35 UG/DL (50-170)
[2024-11-06 09:30] LABS: ALT/SGPT < 9 U/L (7.0-40); AST/SGOT 12 U/L (<34); CALCIUM LEVEL 9.5 MG/DL (8.3-10.6); CARBON DIOXIDE LEVEL 32 MMOL/L (20-31); CHLORIDE LEVEL 100 MMOL/L (98-107); CHOLESTEROL LEVEL 120 MG/DL (<200); CHOLESTEROL RISK RATIO 3.08 (<5); CREATININE FOR GFR 1.71 MG/DL (0.55-1.30); ESTIMATED AVERAGE GLUCOSE 209.0 MG/DL (60-110); GLOMERULAR FILTRATION RATE 28.5 (>32); LDL CHOLESTEROL 59.7 MG/DL (<100); MAGNESIUM LEVEL 1.9 MG/DL (1.8-2.4); NON-HDL-C 81.1 MG/DL; POTASSIUM SERUM 3.9 MMOL/L (3.5-5.1); SODIUM LEVEL 143 MMOL/L (136-145); TRIGLYCERIDES LEVEL 107 MG/DL (<150)
[2024-11-06 09:31] LABS: VITAMIN B12 LEVEL 1958 PG/ML (211-911)
== END ==
LOC: SKLAB4 07:00
PROVIDERS: ATTEND Internal Medicine
DX: E78.5 Hyperlipidemia, unspecified (principal); F03.90 Unspecified dementia, unspecified severity, without behavioral disturbance, psychotic disturbance, mood disturbance, and anxiety; D64.9 Anemia, unspecified; N18.9 Chronic kidney disease, unspecified; Z79.899 Other long term (current) drug therapy

== ENCOUNTER 2024-11-15 19:44 | Observation (INO) | payer MEDICARE, MEDICAID ==
[~2024-11-15] VITALS: Ht 165.1 cm; Wt 101.3 kg
[~2024-11-15 19:44] MED LIST changes: -ACET-907 PO; -ACET650S3 PR; -B-121TAB3 PO; -BISA10SU27 PR; +CYAN250T5 PO; -FERR1TAB8 PO; -JUVE1POW PO; -MILKSUS3 PO; -PANT20TA6 PO; -POLY510P14 PO; -SENN-23 PO; -TORS20TA2 PO; -VITA250T7 PO
[2024-11-15 20:31] LABS: VENOUS BASE EXCESS 3.6 (-2.0-2.0); VENOUS HCO3 30.7 MMOL/L (23.0-27.0); VENOUS O2 SATURATION 50.6 % (60.0-80.0); VENOUS PARTIAL PRESSURE CO2 59.3 mmHg (38.0-50.0); VENOUS PARTIAL PRESSURE O2 29.8 mmHg (30.0-50.0); VENOUS PH 7.332 UNITS (7.330-7.430); VENOUS STANDARD HCO3 26.7 MMOL/L; VENOUS TOTAL CO2 32.5 MMOL/L (24.0-28.0)
[2024-11-15 20:38] LABS: BASO # 0.0 10^3/uL (0.0-0.2); BASO % 0.5 % (0.0-1.0); EOS # 0.2 10^3/uL (0.0-0.5); EOS % 2.6 % (0.0-3.0); LYMPH # 2.3 10^3/uL (1.5-5.0); LYMPH % 25.9 % (24.0-44.0); MONO # 0.4 10^3/uL (0.0-0.8); MONO % 4.1 % (2.0-8.0); NEUTROPHILS # 5.8 10^3/uL (1.5-8.5); NEUTROPHILS % 66.4 % (36.0-66.0); PLATELET COUNT, AUTOMATED 198 10^3/uL (150-450)
[2024-11-15 20:56] LABS: OSMOLALITY SERUM 342.0 MOSM/KG (280-301)
[2024-11-15 21:21] LABS: ESTIMATED AVERAGE GLUCOSE 249.0 MG/DL (60-110)
[2024-11-15 21:22] LABS: ALT/SGPT 18.0 U/L (7.0-40); AST/SGOT 28.0 U/L (<34); CALCIUM LEVEL 9.3 MG/DL (8.3-10.6); CARBON DIOXIDE LEVEL 32.0 MMOL/L (20-31); CHLORIDE LEVEL 98.0 MMOL/L (98-107); CREATININE FOR GFR 1.64 MG/DL (0.55-1.30); GLOMERULAR FILTRATION RATE 29.9 (>32); POTASSIUM SERUM 4.7 MMOL/L (3.5-5.1); SODIUM LEVEL 140.0 MMOL/L (136-145)
[2024-11-15] MEDS: NS (Normal Saline) 0.9% 1,000 ML IV ONE (21:24)
[2024-11-15] MEDS: INSULIN LISPRO (NovoLOG) PER UNIT SC STA (21:32)
[2024-11-15 21:55] LABS: ACETONE/KETONE 0.12 MMOL/L (0.02-0.27)
[2024-11-15 23:11] LABS: KETONE, URINE AUTO RFX NEGATIVE (NEGATIVE); RBC, URINE AUTO RFX 1 /HPF (0-3); SQUAM EPITHELIAL CELL UR AURFX 3 /HPF (0-6)
[2024-11-15 23:13] LABS: LEUKOCYTE ESTERASE UR AUTO RFX 3+ (NEGATIVE); NITRITE, URINE AUTO RFX POSITIVE (NEGATIVE); WBC, URINE AUTO RFX 67 /HPF (0-3)
[2024-11-15] MEDS: HumuLIN R (REGULAR) INSULIN (NovoLIN R) **100 U/ML** PER UNIT IV ONE (23:30)
[2024-11-15] MEDS: cefTRIAXone SOD 1 GM in DEXTROSE 5% (D5W) ADV/MINI-BAG 50 ML IV ONE (23:50)
[2024-11-16] MEDS ORDERED: GLUCAGON INJ 1 MG VIAL SC PRN (01:05)
[2024-11-16] MEDS ORDERED: GLUCOSE 4 GM CHEW PO PRN (01:05)
[2024-11-16] MEDS ORDERED: DEXTROSE 50% 50 ML SYRINGE IV PRN (01:05)
[2024-11-16 03:28] VITALS: BP 158/96; TEMP 97.7; O2SAT 93
[2024-11-16 03:56] LABS: PLATELET COUNT, AUTOMATED 175 10^3/uL (150-450)
[2024-11-16 04:12] LABS: D-DIMER QUANT 0.61 ug/mL (<0.5); INR 1.13
[2024-11-16 04:20] LABS: LDH LACTATE DEHYDROGENASE 155 U/L (120-246)
[2024-11-16 04:22] LABS: ALT/SGPT 18 U/L (7.0-40); AST/SGOT 21 U/L (<34); C REACTIVE PROTEIN QUANTITATIV < 0.50 MG/DL (<1.0); CALCIUM LEVEL 9.4 MG/DL (8.3-10.6); CARBON DIOXIDE LEVEL 34 MMOL/L (20-31); CHLORIDE LEVEL 104 MMOL/L (98-107); CREATININE FOR GFR 1.56 MG/DL (0.55-1.30); GLOMERULAR FILTRATION RATE 31.8 (>32); MAGNESIUM LEVEL 2.0 MG/DL (1.8-2.4); POTASSIUM SERUM 3.9 MMOL/L (3.5-5.1); SODIUM LEVEL 146 MMOL/L (136-145)
[2024-11-16] MEDS: REMDESIVIR 200 MG in NS 250 ML IV ONE (05:58)
[2024-11-16] MEDS ORDERED: INSULIN LISPRO (NovoLOG) PER UNIT SC SCH ×2 (07:30→21:00)
[2024-11-16 08:00] VITALS: BP 145/69; TEMP 97.2; O2SAT 96
[2024-11-16] MEDS ORDERED: INSULIN GLARGINE-YFGN 1 UNITS/0.01 ML SC SCH ×3 (09:00→21:00)
[2024-11-16] MEDS: DOCUSATE SODIUM 100 MG CAPSULE PO SCH (09:25)
[2024-11-16] MEDS: cefTRIAXone SOD 1 GM in DEXTROSE 5% (D5W) ADV/MINI-BAG 50 ML IV SCH (09:25)
[2024-11-16] MEDS: INSULIN GLARGINE-YFGN 1 UNITS/0.01 ML SC SCH ×2 (09:25→21:04)
[2024-11-16 12:00] VITALS: BP 142/62; TEMP 97.5; O2SAT 94
[2024-11-16] MEDS ORDERED: POLY510P14 PO (12:05)
[2024-11-16] MEDS ORDERED: B-121TAB3 PO (12:05)
[2024-11-16] MEDS ORDERED: PANT20TA6 PO (12:05)
[2024-11-16] MEDS ORDERED: FERR1TAB8 PO (12:05)
[2024-11-16] MEDS ORDERED: SENN-23 PO (12:05)
[2024-11-16] MEDS ORDERED: JUVE1POW PO (12:13)
[2024-11-16] MEDS ORDERED: TORS20TA2 PO (12:13)
[2024-11-16] MEDS ORDERED: BISA10SU27 PR (12:13)
[2024-11-16] MEDS ORDERED: ACET-907 PO (12:13)
[2024-11-16] MEDS ORDERED: MILKSUS3 PO (12:13)
[2024-11-16] MEDS ORDERED: ACET650S3 PR (12:13)
[2024-11-16] MEDS ORDERED: HOME MED LIST COMPLETE! XX SCH (12:15)
[2024-11-16] MEDS: MAALOX 30 ML SUSP *UDC PO PRN (13:29)
[2024-11-16] MEDS: ATORVASTATIN 20 MG TAB PO SCH (13:30)
[2024-11-16] MEDS: APIXABAN 2.5 MG TAB PO SCH (13:30)
[2024-11-16] MEDS: ASPIRIN 81 MG ENTERIC TABLET PO SCH (13:30)
[2024-11-16] MEDS: INSULIN LISPRO (NovoLOG) PER UNIT SC SCH ×3 (13:32→21:03)
[2024-11-16] MEDS: ACETAMINOPHEN 325 MG TAB PO PRN (13:36)
[2024-11-16] MEDS: TORSEMIDE 20 MG TAB PO SCH (14:13)
[2024-11-16 19:50] VITALS: BP 130/64; TEMP 97.3; O2SAT 97
[2024-11-17] VITALS: BP 129/61; TEMP 97; O2SAT 95
[2024-11-17] MEDS ORDERED: cefTRIAXone SOD 1 GM in DEXTROSE 5% (D5W) ADV/MINI-BAG 50 ML IV SCH
[2024-11-17 04:34] VITALS: BP 126/63; TEMP 96.8; O2SAT 95
[2024-11-17 06:34] LABS: PLATELET COUNT, AUTOMATED 191 10^3/uL (150-450)
[2024-11-17 07:00] LABS: ALT/SGPT 19.0 U/L (7.0-40); AST/SGOT 24.0 U/L (<34); CALCIUM LEVEL 9.2 MG/DL (8.3-10.6); CARBON DIOXIDE LEVEL 32.0 MMOL/L (20-31); CHLORIDE LEVEL 104.0 MMOL/L (98-107); CREATININE FOR GFR 1.46 MG/DL (0.55-1.30); GLOMERULAR FILTRATION RATE 34.4 (>32); MAGNESIUM LEVEL 2.0 MG/DL (1.8-2.4); POTASSIUM SERUM 3.8 MMOL/L (3.5-5.1); SODIUM LEVEL 148.0 MMOL/L (136-145)
[2024-11-17] MEDS: INSULIN GLARGINE-YFGN 1 UNITS/0.01 ML SC SCH ×2 (08:44→21:03)
[2024-11-17] MEDS ORDERED: INSULIN GLARGINE-YFGN 1 UNITS/0.01 ML SC SCH (09:00)
[2024-11-17 12:00] VITALS: BP 119/58; TEMP 97.3; O2SAT 97
[2024-11-17] MEDS: MIRALAX *UNIT DOSE* 17 GM PACKET PO SCH (14:34)
[2024-11-17] MEDS: D5W 1,000 ML IV SCH (14:34)
[2024-11-17] MEDS: FERROUS SULFATE 325 MG TAB PO SCH (14:34)
[2024-11-17] MEDS: CYANOCOBALAMIN 500 MCG TAB PO SCH (14:34)
[2024-11-17] MEDS: TORSEMIDE 20 MG TAB PO SCH (14:38)
[2024-11-17] MEDS: SENNOSIDES/DOCUSATE SODIUM 8.6 MG/50MG TAB PO SCH (17:45)
[2024-11-17 20:28] VITALS: BP 133/72; TEMP 97.2; O2SAT 94
[2024-11-17] MEDS: MOM 30 ML SUSPENSION UDC PO PRN (21:06)
[2024-11-17 22:51] LABS: CALCIUM LEVEL 9.4 MG/DL (8.3-10.6); CARBON DIOXIDE LEVEL 33.0 MMOL/L (20-31); CHLORIDE LEVEL 101.0 MMOL/L (98-107); CREATININE FOR GFR 1.53 MG/DL (0.55-1.30); GLOMERULAR FILTRATION RATE 32.5 (>32); POTASSIUM SERUM 3.7 MMOL/L (3.5-5.1); SODIUM LEVEL 144.0 MMOL/L (136-145)
[2024-11-18 03:41] VITALS: BP 112/60; TEMP 96.8; O2SAT 93
[2024-11-18 06:41] LABS: PLATELET COUNT, AUTOMATED 181 10^3/uL (150-450)
[2024-11-18 07:32] LABS: ALT/SGPT 21.0 U/L (7.0-40); AST/SGOT 27.0 U/L (<34); CALCIUM LEVEL 9.3 MG/DL (8.3-10.6); CARBON DIOXIDE LEVEL 31.0 MMOL/L (20-31); CHLORIDE LEVEL 102.0 MMOL/L (98-107); CREATININE FOR GFR 1.54 MG/DL (0.55-1.30); GLOMERULAR FILTRATION RATE 32.3 (>32); POTASSIUM SERUM 3.6 MMOL/L (3.5-5.1); SODIUM LEVEL 145.0 MMOL/L (136-145)
[2024-11-18] MEDS: CIPROFLOXACIN 250 MG TAB PO SCH (10:24)
[2024-11-18 11:47] VITALS: BP 117/65; TEMP 97.7; O2SAT 96
[2024-11-18] MEDS ORDERED: INSUHUMDS SC ×2 (16:29)
[2024-11-18] MEDS ORDERED: GLUC4GMTAB PO (16:29)
[2024-11-18] MEDS ORDERED: TRES1INJ SC ×2 (16:29)
[2024-11-18] MEDS ORDERED: DEXT50SY3 IV (16:29)
[2024-11-18] MEDS ORDERED: COLA100C5 PO (16:29)
[2024-11-18] MEDS ORDERED: GLUC1VIA14 SC (16:29)
[2024-11-18] MEDS ORDERED: RISATAB3 PO (16:38)
[2024-11-18] MEDS ORDERED: INSU100V11 SC ×2 (16:38)
[2024-11-18] MEDS ORDERED: CIPR-250 PO (16:38)
[2024-11-18] MEDS ORDERED: CIPROFLOXACIN 500 MG TABLET PO SCH (18:00)
[2024-11-18 20:10] VITALS: BP 119/65; TEMP 97.5; O2SAT 95
[2024-11-18] MEDS: BISACODYL 10 MG SUPP PR PRN (22:12)
[2024-11-18] MEDS: INSULIN GLARGINE-YFGN 1 UNITS/0.01 ML SC SCH (22:12)
[2024-11-19 04:44] VITALS: BP 112/85; TEMP 97.9; O2SAT 91
[2024-11-19 06:28] LABS: PLATELET COUNT, AUTOMATED 198 10^3/uL (150-450)
[2024-11-19 06:51] LABS: ALT/SGPT 19.0 U/L (7.0-40); AST/SGOT 25.0 U/L (<34); CALCIUM LEVEL 9.6 MG/DL (8.3-10.6); CARBON DIOXIDE LEVEL 33.0 MMOL/L (20-31); CHLORIDE LEVEL 102.0 MMOL/L (98-107); CREATININE FOR GFR 1.84 MG/DL (0.55-1.30); GLOMERULAR FILTRATION RATE 26.1 (>32); POTASSIUM SERUM 3.9 MMOL/L (3.5-5.1); SODIUM LEVEL 146.0 MMOL/L (136-145)
[2024-11-19 09:03] VITALS: BP 158/81
== END 2024-11-19 10:45 ==
LOC: M ED 19:44 → M ED INP 11-16 01:02 → INTOOBSV 11-16 01:02 → M MSPAV 11-16 02:48
PROVIDERS: ADMIT Student in an Organized Health Care Education/Training Program; ATTEND Internal Medicine
DX: E11.65 Type 2 diabetes mellitus with hyperglycemia (principal); N39.0 Urinary tract infection, site not specified; B96.5 Pseudomonas (aeruginosa) (mallei) (pseudomallei) as the cause of diseases classified elsewhere; E87.0 Hyperosmolality and hypernatremia; E87.8 Other disorders of electrolyte and fluid balance, not elsewhere classified; R00.1 Bradycardia, unspecified; I49.8 Other specified cardiac arrhythmias; U07.1 COVID-19; L89.891 Pressure ulcer of other site, stage 1; N18.30 Chronic kidney disease, stage 3 unspecified; I12.9 Hypertensive chronic kidney disease with stage 1 through stage 4 chronic kidney disease, or unspecified chronic kidney disease; D51.9 Vitamin B12 deficiency anemia, unspecified; D50.9 Iron deficiency anemia, unspecified; I48.91 Unspecified atrial fibrillation; I25.10 Atherosclerotic heart disease of native coronary artery without angina pectoris; Z95.5 Presence of coronary angioplasty implant and graft; F03.90 Unspecified dementia, unspecified severity, without behavioral disturbance, psychotic disturbance, mood disturbance, and anxiety; E66.01 Morbid (severe) obesity due to excess calories; M85.80 Other specified disorders of bone density and structure, unspecified site; R13.10 Dysphagia, unspecified; M17.12 Unilateral primary osteoarthritis, left knee; E04.2 Nontoxic multinodular goiter; I65.09 Occlusion and stenosis of unspecified vertebral artery; E55.9 Vitamin D deficiency, unspecified; Z86.73 Personal history of transient ischemic attack (TIA), and cerebral infarction without residual deficits; Z85.3 Personal history of malignant neoplasm of breast; Z90.12 Acquired absence of left breast and nipple; Z96.652 Presence of left artificial knee joint; Z79.899 Other long term (current) drug therapy; Z79.01 Long term (current) use of anticoagulants; Z79.82 Long term (current) use of aspirin; Z79.4 Long term (current) use of insulin; N18.9 Chronic kidney disease, unspecified; Z66 Do not resuscitate
CPT/HCPCS: 36415; 71045; 80047; 80048; 80053; 80076; 81001; 82010; 82728; 82803; 83036; 83615; 83690; 83735; 83930; 84145; 85025; 85027; 85379; 85384; 85610; 85730; 86140; 87040; 87088; 87186; 87486; 87581; 87633; 87798; 93005; 93041; 94760; 96361; 96365; 96366; 96375; 96376; 99285; G0378; J0248; J0696; J1815

== ENCOUNTER → 2024-11-15 | Outpatient (REF) | payer MEDICARE, MEDICAID ==
[~2024-11-15] MED LIST changes: +ACET-907 PO; +ACET650S3 PR; +B-121TAB3 PO; +BISA10SU27 PR; +FERR1TAB8 PO; +JUVE1POW PO; +MILKSUS3 PO; +PANT20TA6 PO; +POLY510P14 PO; +SENN-23 PO; +TORS20TA2 PO
[2024-11-15 18:18] LABS: CALCIUM LEVEL 9.6 MG/DL (8.3-10.6); CARBON DIOXIDE LEVEL 27.0 MMOL/L (20-31); CHLORIDE LEVEL 97.0 MMOL/L (98-107); CREATININE FOR GFR 1.56 MG/DL (0.55-1.30); GLOMERULAR FILTRATION RATE 31.8 (>32); POTASSIUM SERUM 4.5 MMOL/L (3.5-5.1); SODIUM LEVEL 138.0 MMOL/L (136-145)
== END ==
LOC: SKLAB2 16:48
PROVIDERS: ATTEND Internal Medicine
DX: N18.9 Chronic kidney disease, unspecified (principal)

== ENCOUNTER → 2024-11-21 | Outpatient (REF) | payer MEDICARE, MEDICAID ==
[~2024-11-21] MED LIST changes: +ACET-907 PO; +ACET650S3 PR; +B-121TAB3 PO; +BISA10SU27 PR; +CIPR-250 PO; +COLA100C5 PO; +DEXT50SY3 IV; +FERR1TAB8 PO; +GLUC1VIA14 SC; +GLUC4GMTAB PO; +INSU100V11 SC; +INSUHUMDS SC; +JUVE1POW PO; +MILKSUS3 PO; +PANT20TA6 PO; +POLY510P14 PO; +RISATAB3 PO; +SENN-23 PO; +TORS20TA2 PO
[2024-11-21 09:29] LABS: ALT/SGPT 15.0 U/L (7.0-40); AST/SGOT 18.0 U/L (<34); CALCIUM LEVEL 10.0 MG/DL (8.3-10.6); CARBON DIOXIDE LEVEL 31.0 MMOL/L (20-31); CHLORIDE LEVEL 101.0 MMOL/L (98-107); CREATININE FOR GFR 1.77 MG/DL (0.55-1.30); GLOMERULAR FILTRATION RATE 27.3 (>32); POTASSIUM SERUM 4.1 MMOL/L (3.5-5.1); SODIUM LEVEL 143.0 MMOL/L (136-145)
== END ==
LOC: SKLAB4 07:00
PROVIDERS: ATTEND Internal Medicine
DX: N18.9 Chronic kidney disease, unspecified (principal)

== ENCOUNTER → 2025-01-22 | Outpatient (CLI) | payer MEDICARE, MEDICAID | LOC: M RAD 12:03 | PROVIDERS: ATTEND Nurse Practitioner Adult Health | DX: R22.42 Localized swelling, mass and lump, left lower limb (principal) ==

== ENCOUNTER → 2025-02-14 | Outpatient (REF) | payer MEDICARE, MEDICAID ==
[2025-02-14 09:17] LABS: PLATELET COUNT, AUTOMATED 243 10^3/uL (150-450)
[2025-02-14 09:27] LABS: ESTIMATED AVERAGE GLUCOSE 177.0 MG/DL (60-110)
[2025-02-14 09:39] LABS: ALT/SGPT 16.0 U/L (7.0-40); AST/SGOT 16.0 U/L (<34); CALCIUM LEVEL 9.5 MG/DL (8.3-10.6); CARBON DIOXIDE LEVEL 27.0 MMOL/L (20-31); CHLORIDE LEVEL 107.0 MMOL/L (98-107); CREATININE FOR GFR 1.47 MG/DL (0.55-1.30); GLOMERULAR FILTRATION RATE 34.1 (>32); MAGNESIUM LEVEL 1.8 MG/DL (1.8-2.4); POTASSIUM SERUM 4.1 MMOL/L (3.5-5.1); SODIUM LEVEL 145.0 MMOL/L (136-145)
== END ==
LOC: SKLAB4 07:00
PROVIDERS: ATTEND Family Medicine
DX: E11.22 Type 2 diabetes mellitus with diabetic chronic kidney disease (principal); N18.9 Chronic kidney disease, unspecified